=== PATIENT | female | born 1990 | race Caucasian/White ===

== ENCOUNTER → 2016-12-09 | Outpatient (CLI) | payer BC | LOC: MW.LAB 13:14 | PROVIDERS: ATTEND Internal Medicine Endocrinology, Diabetes & Metabolism | DX: E05.90 Thyrotoxicosis, unspecified without thyrotoxic crisis or storm (principal) | CPT/HCPCS: 36415; 84439; 84481 ==

== ENCOUNTER 2018-02-21 07:17 | Day surgery (SDC) | payer BC ==
[~2018-02-21 07:17] MED LIST: Acetaminophen 1,000 MG in Premix Bag 1 BAG IV SCH; Lactated Ringers 1,000 ML IV SCH; Scopolamine 1.5 MG Transdermal Patch TRDERM PRN; fentaNYL 100 MCG/2 ML SDV IVPUSH PRN
[2018-02-21] MEDS ORDERED: Ondansetron 4 MG/2 ML SDV ONE (07:18)
[2018-02-21] MEDS ORDERED: Dexamethasone 4 MG/ML 5 ML MDV ONE (07:18)
[2018-02-21] MEDS ORDERED: diphenhydrAMINE 50 MG/ML SDV ONE (07:18)
[2018-02-21] MEDS ORDERED: Propofol 200 MG/20 ML SDV ONE (07:19)
[2018-02-21] MEDS ORDERED: Midazolam 1 MG/ML 2 ML SDV ONE (07:19)
[2018-02-21] MEDS ORDERED: fentaNYL 100 MCG/2 ML SDV ONE (07:19)
[2018-02-21] MEDS ORDERED: Famotidine 20 MG/2 ML SDV ONE (08:42)
--- NOTE | 2018-02-21 08:44 | PCM.PREANE ---
Preanesthetic Assessment - Anesthesia/Transfusion/Family Hx Anesthesia History: Prior Anesthesia Without Reaction Other Type of Anesthesia Reaction Comment: states mother has problems with N/V Family History of Anesthesia Reaction: No Transfusion History: No Prior Transfusion(s) Intubation History: Unknown - Review of Systems General: No Symptoms Pulmonary: No Symptoms Cardiovascular: No Symptoms Gastrointestinal: No Symptoms Neurological: No Symptoms Other: Reports: None - Physical Assessment Height: 1.68 m Weight: 55.338 kg ASA Class: 2 Mental Status: Alert & Oriented x3 Airway Class: Mallampati = 2 Dentition: Reports: Normal Dentition Thyro-Mental Finger Breadths: 3 Mouth Opening Finger Breadths: 3 ROM/Head Extension: Full Lungs: Clear to Auscultation, Normal Respiratory Effort Cardiovascular: Regular Rate, Regular Rhythm - Lab Values: Laboratory Last Values WBC 8.99 K/uL (4.0-11.0) 02/20/18 16:03 RBC 4.32 M/uL (4.30-5.90) 02/20/18 16:03 Hgb 14.1 g/dL (12.0-16.0) 02/20/18 16:03 Hct 38.1 % (36.0-46.0) 02/20/18 16:03 MCV 88.2 fL (80.0-98.0) 02/20/18 16:03 MCH 32.6 pg (27.0-32.0) H 02/20/18 16:03 MCHC 37.0 g/dL (31.0-37.0) 02/20/18 16:03 RDW Std Deviation 39.4 fl (28.0-62.0) 02/20/18 16:03 RDW Coeff of Sola 12 % (11.0-15.0) 02/20/18 16:03 Plt Count 206 K/uL (150-400) 02/20/18 16:03 MPV 10.40 fL (7.40-12.00) 02/20/18 16:03 Nucleated RBC % 0.0 /100WBC 02/20/18 16:03 Nucleated RBCs # 0 K/uL 02/20/18 16:03 Blood Type A POSITIVE 02/20/18 16:03 Antibody Screen NEGATIVE 02/20/18 16:03 - Allergies Allergies/Adverse Reactions: Allergies Allergy/AdvReac Type Severity Reaction Status Date / Time No Known Allergies Allergy Verified 02/16/18 15:00 - Blood Blood Available: No - Anesthesia Plan Pre-Op Medication Ordered: None - Acknowledgements Anesthesia Type Planned: General Anesthesia Pt an Appropriate Candidate for the Planned Anesthesia: Yes Alternatives and Risks of Anesthesia Discussed w Pt/Guardian: Yes Pt/Guardian Understands and Agrees with Anesthesia Plan: Yes PreAnesthesia Questionnaire HEENT History: Reports: Other (See Below) Other HEENT History: wears glasses/contacts Cardiovascular History: Reports: None Respiratory History: Reports: None Gastrointestinal History: Reports: GERD Genitourinary History: Reports: None 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) (missed ) Musculoskeletal History: Reports: None Neurological History: Reports: None Psychiatric History: Reports: None Endocrine/Metabolic History: Reports: Hyperparathyroidism, Other (See Below) Other Endocrine/Metabolic History: Graves Disease Hematologic History: Reports: None Immunologic History: Reports: None Oncologic (Cancer) History: Reports: None Dermatologic History: Reports: None - Past Surgical History Head Surgeries/Procedures: Reports: None HEENT Surgical History: Reports: Oral Surgery Cardiovascular Surgical History: Reports: None Respiratory Surgical History: Reports: None GI Surgical History: Reports: Cholecystectomy, EGD Female Surgical History: Reports: Other (See Below) Other Female Surgeries/Procedures: excision axillary left breast tissue Endocrine Surgical History: Reports: None Neurological Surgical History: Reports: None Musculoskeletal Surgical History: Reports: None Oncologic Surgical History: Reports: None Dermatological Surgical History: Reports: None - SUBSTANCE USE Smoking Status *Q: Never Smoker Recreational Drug Use History: No - HOME MEDS Home Medications: Home Meds Propylthiouracil 50 mg PO Q8H 02/16/18 [History] - CURRENT (IN HOUSE) MEDS Current Meds: Current Medications Fentanyl (Sublimaze) 50 mcg IVPUSH .Q5MIN PRN PRN Reason: Pain Lactated Ringer's (Ringers, Lactated) 1,000 mls @ 100 mls/hr IV ASDIRECTED KARTHIK Acetaminophen 1,000 mg/ Premix 100 mls @ 400 mls/hr IV .ONETIME KARTHIK Scopolamine (Transderm-Scop) 1.5 mg TRDERM .ONCE PRN PRN Reason: Post Op Nausea Discontinued Medications Dexamethasone (Dexamethasone) Confirm Administered Dose 20 mg .ROUTE .STK-MED ONE Stop: 02/21/18 07:19 Diphenhydramine HCl (Benadryl) Confirm Administered Dose 50 mg .ROUTE .STK-MED ONE Stop: 02/21/18 07:19 Fentanyl (Sublimaze) Confirm Administered Dose 100 mcg .ROUTE .STK-MED ONE Stop: 02/21/18 07:20 Lidocaine HCl (Xylocaine-Mpf 1%) Confirm Administered Dose 5 mls @ as directed .ROUTE .STK-MED ONE Stop: 02/21/18 07:19 Midazolam HCl (Versed 1 Mg/Ml) Confirm Administered Dose 2 mg .ROUTE .STK-MED ONE Stop: 02/21/18 07:20 Ondansetron HCl (Zofran) Confirm Administered Dose 4 mg .ROUTE .STK-MED ONE Stop: 02/21/18 07:19 Propofol (Diprivan 20 Ml) Confirm Administered Dose 200 mg .ROUTE .STK-MED ONE Stop: 02/21/18 07:20
[2018-02-21] MEDS ORDERED: Methylergonovine 0.2 MG/1 ML Amp ONE (09:09)
[2018-02-21] MEDS ORDERED: Ketorolac 30 MG/ML SDV ONE (09:27)
[2018-02-21] MEDS ORDERED: Meperidine PF 25 MG/ML Syringe IVPUSH PRN (09:41)
[2018-02-21] MEDS ORDERED: Promethazine 25 MG/ML SDV IM PRN (09:42)
--- NOTE | 2018-02-21 10:21 | PCM.OPNOTE ---
- General Post-Op/Procedure Note Date of Surgery/Procedure: 02/21/18 Operative Procedure(s): suctions dilatation and curettage Findings: Preop uterus boggy, retroverted 9 week size, sounds to 9 cm. Postop, uterus firm, retroverted, no retained POC on ultrasound, 7 week size Pre Op Diagnosis: 8w5d blighted ovum Post-Op Diagnosis: Same Anesthesia Technique: General LMA Primary Surgeon: Tammy Sanchez Anesthesia Provider: Lalo Gamboa Rn Charge: Alla Hua Pathology: products of conception Fluid Replacement, Intraop: 1,500 EBL in mLs: 300 Complications: None Known Condition: Good Free Text/Narrative:: Intake & Output 02/20/18 02/21/18 02/21/18 22:59 06:59 14:59 Intake Total 1700 Balance 1700
--- NOTE | 2018-02-21 11:42 | PCM48HPAN ---
Post Anesthesia Note - EVALUATION WITHIN 48HRS OF ANESTHETIC Vital Signs in Normal Range: Yes Patient Participated in Evaluation: Yes Respiratory Function Stable: Yes Airway Patent: Yes Cardiovascular Function Stable: Yes Hydration Status Stable: Yes Pain Control Satisfactory: Yes Nausea and Vomiting Control Satisfactory: Yes Mental Status Recovered: Yes Resp Rate: 13 - COMMENTS/OBSERVATIONS Free Text/Narrative:: no anesthesia problems
[2018-02-21 14:20] VITALS: BP 104/76
--- NOTE | 2018-02-21 14:46 | OR ---
SURGEON: Tammy Sanchez M.D. DATE OF PROCEDURE: 02/21/2018 PREOPERATIVE DIAGNOSIS: Missed . POSTOPERATIVE DIAGNOSIS: Missed . PROCEDURE: Suction, dilatation, and curettage. ANESTHESIA: General LMA. ESTIMATED BLOOD LOSS: 300 mL. FLUIDS: 1500 mL of crystalloid. FINDINGS: Preoperatively, the uterus was retroverted, sounded to 9-week size, 9 cm on bimanual examination. Postoperatively, the uterus was firm, retroverted, 6-7 week size. COMPLICATIONS: None known. DISPOSITION: Stable to recovery. BRIEF HISTORY: This is a 27-year-old female, G1, P0. She is currently 8 weeks and 5 days with a blighted ovum. She has had no bleeding, spotting, pain, or cramping. She has continued to be nauseated throughout the ; however, on serial ultrasounds, there was a large gestational sac with no yolk sac. She was given option of vaginal Cytotec in the clinic versus suction D and C versus expectant management. She desired to proceed with suction D and C, she did receive a single dose of oral 200 mcg of Cytotec. Approximately 6 hours prior to the surgery, she did notice some cramping, very light spotting after taking Cytotec. Risks of the surgery were discussed including bleeding, infection, uterine perforation with injury to surrounding organs, risk of thromboembolic event, risk of anesthesia, and risk of Asherman syndrome. Understanding all these risks, she does desire to proceed. DESCRIPTION OF PROCEDURE: With the patient in dorsal lithotomy position, under adequate LMA analgesia, the perineum and vagina were prepped with Betadine and draped in usual fashion for vaginal surgery. An appropriate time-out was held. Bimanual examination revealed a retroverted 9-week size uterus. Speculum was placed in the vagina. The tenaculum was placed on the anterior cervix and the cervix was sounded to 9 cm, it was dilated to a 9 mm Hegar dilator and with traction on the cervix, the straight 9 mm suction curette was placed to the uterine fundus and retracted repetitively. Initially, there was some fluid and tissue obtained. Following this, there was no further tissue obtained. Sharp curettage was performed on the 12, 3, 6, and 9 o'clock position. I did not feel an active uterine cry, although I did not obtain any additional tissue. I did take several more passes with a 9 mm curette with no further tissue obtained. I did further dilated to a 10 mm curette and made a pass with a 10 mm curette. Again, I did not obtain any further tissue; therefore, ultrasound was obtained. There was excellent visualization of the endometrial cavity. There was no evidence of any retained products of conception. This being completed, then the instruments were removed from the vagina. The patient did receive Methergine 0.2 mg IM. Following this, with bimanual massage, the uterus was firm, retroverted, 6-7 week size with minimal active bleeding. All the instruments removed from the vagina. Final sponge, needle, and instrument counts were reported as correct. There were no known complications. The patient was transferred to recovery in good condition. MAXIMILIAN WOODALL /[id number]
== END 2018-02-21 12:00 | disposition home or self-care (01) ==
LOC: MW.SDS 07:17
PROVIDERS: ATTEND Obstetrics & Gynecology
DX: O02.0 Blighted ovum and nonhydatidiform mole (principal); K21.9 Gastro-esophageal reflux disease without esophagitis; E05.00 Thyrotoxicosis with diffuse goiter without thyrotoxic crisis or storm; Z79.899 Other long term (current) drug therapy
CPT/HCPCS: 36415; 59820; 85027; 86850; 86900; 86901; A9270; J1100; J1200; J1885; J2175; J2210; J2250; J2405; J2550; J3010; J7120; 88305; J2704

== ENCOUNTER 2018-04-02 11:11 | Emergency (ER) | payer BC ==
[2018-04-02 11:22] VITALS: BP 115/68
[2018-04-02] MEDS ORDERED: Phenazopyridine 200 MG Tab PO ONE (11:38)
--- NOTE | 2018-04-02 11:40 | EDM.PDOC ---
ED HPI GENERAL MEDICAL PROBLEM - General Chief Complaint: Genitourinary Problem Stated Complaint: UTI Time Seen by Provider: 04/02/18 11:12 Source of Information: Reports: Patient History Limitations: Reports: No Limitations - History of Present Illness INITIAL COMMENTS - FREE TEXT/NARRATIVE: History of present illness: []Patient was diagnosed with UTI yesterday and this morning urinated blood. She denies any fevers or chills, she had mild low back pain yesterday but is better today. Patient has bilateral lower abdominal pain Review of systems: As per history of present illness and below otherwise all systems reviewed and negative. Past medical history: As per history of present illness and as reviewed below otherwise noncontributory. Surgical history: As per history of present illness and as reviewed below otherwise noncontributory. Social history: No reported history of drug or alcohol abuse. Family history: As per history of present illness and as reviewed below otherwise noncontributory. Physical exam: General: Well developed, well nourished in NAD HEENT: Atraumatic, normocephalic, pupils reactive, negative for conjunctival pallor or scleral icterus, mucous membranes moist, throat clear, neck supple, nontender, trachea midline. Lungs: Clear to auscultation, breath sounds equal bilaterally, chest nontender. Heart: S1S2, regular, negative for clicks, rubs, or JVD. Abdomen: Soft, nondistended, mild lower abdominal tenderness bilaterally without rebound or guarding. Negative for masses or hepatosplenomegaly. Negative for costovertebral tenderness. Pelvis: Stable nontender. Genitourinary: Deferred. Rectal: Deferred. Extremities: Atraumatic, negative for cords or calf pain. Neurovascular unremarkable. Neuro: Awake, alert, oriented. Cranial nerves II through XII unremarkable. Cerebellum unremarkable. Motor and sensory unremarkable throughout. Exam nonfocal. Skin:warm and dry Diagnostics: UA was 20-30 white cells too numerous to count red cells, urine culture sent, hCG negative Therapeutics: I reviewed the Zofran given ED Course: Unremarkable Impression: UTI Prescriptions: Pyridium, Plan: Increase fluids, Pyridium 3 times a day continue amoxicillin Definitive disposition and diagnosis as appropriate pending reevaluation and review of above. Bladder Pain Score (Numeric/FACES): 4 - Related Data Allergies Allergy/AdvReac Type Severity Reaction Status Date / Time No Known Allergies Allergy Verified 02/16/18 15:00 Home Meds: Home Meds Amoxicillin 500 mg TID 04/02/18 [History] Ketorolac [Toradol] 10 mg PO Q6H PRN 04/02/18 [History] Phenazopyridine HCl [Pyridium] 200 mg PO TID #9 tablet 04/02/18 [Rx] methIMAzole [Methimazole] 10 mg DAILY 04/02/18 [History] Past Medical History HEENT History: Reports: Other (See Below) Other HEENT History: wears glasses/contacts Cardiovascular History: Reports: None Respiratory History: Reports: None Gastrointestinal History: Reports: GERD Genitourinary History: Reports: None 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 (See Below) Musculoskeletal History: Reports: None Neurological History: Reports: None Psychiatric History: Reports: None Endocrine/Metabolic History: Reports: Hyperparathyroidism, Other (See Below) Other Endocrine/Metabolic History: Graves Disease Hematologic History: Reports: None Immunologic History: Reports: None Oncologic (Cancer) History: Reports: None Dermatologic History: Reports: None - Past Surgical History Head Surgeries/Procedures: Reports: None HEENT Surgical History: Reports: Oral Surgery Cardiovascular Surgical History: Reports: None Respiratory Surgical History: Reports: None GI Surgical History: Reports: Cholecystectomy, EGD Female Surgical History: Reports: D&C, Dilitation & Evacuation, Other (See Below) Other Female Surgeries/Procedures: excision axillary left breast tissue Endocrine Surgical History: Reports: None Neurological Surgical History: Reports: None Musculoskeletal Surgical History: Reports: None Oncologic Surgical History: Reports: None Dermatological Surgical History: Reports: None Social & Family History - Family History Family Medical History: Noncontributory - Tobacco Use Smoking Status *Q: Never Smoker Second Hand Smoke Exposure: No - Caffeine Use Caffeine Use: Reports: None - Recreational Drug Use Recreational Drug Use: No ED ROS GENERAL - Review of Systems Review Of Systems: ROS reveals no pertinent complaints other than HPI. ED EXAM, RENAL/ - Physical Exam Exam: See Below (See history of present illness) Course - Vital Signs Last Recorded V/S: Last Vital Signs Temp 98.1 F 04/02/18 11:19 Pulse 94 04/02/18 11:19 Resp 18 04/02/18 11:19 BP 115/68 04/02/18 11:19 Pulse Ox 94 L 04/02/18 11:19 - Orders/Labs/Meds Orders: Active Orders 24 hr Category Date Time Status CULTURE URINE [RM] Stat Lab 04/02/18 11:31 Received HCG QUALITATIVE,URINE [URCHEM] Stat Lab 04/02/18 11:31 Ordered URINALYSIS W/MICROSCOPIC [UA W/MICROSCOPIC] [URIN] Stat Lab 04/02/18 11:31 Ordered Labs: Laboratory Tests 04/02/18 04/02/18 Range/Units 11:31 11:31 Urine Color DARK YELLOW Urine Appearance SLT CLOUDY Urine pH 6.0 (5.0-8.0) Ur Specific Range 1.010 (1.001-1.035) Urine Protein 100 (NEGATIVE) mg/dL Urine Glucose (UA) NEGATIVE (NEGATIVE) mg/dL Urine Ketones NEGATIVE (NEGATIVE) mg/dL Urine Occult Blood LARGE H (NEGATIVE) Urine Nitrite NEGATIVE (NEGATIVE) Urine Bilirubin NEGATIVE (NEGATIVE) Urine Urobilinogen 0.2 (<2.0) EU/dL Ur Leukocyte Esterase MODERATE (NEGATIVE) Urine RBC TOO BHAVYA (0-2/HPF) Urine WBC 20-30 (0-5/HPF) Ur Epithelial Cells FEW (NONE-FEW) Urine Bacteria FEW (NEGATIVE) Urine HCG, Qual NEGATIVE (NEGATIVE) Meds: Medications Discontinued Medications Generic Name Dose Route Start Last Admin Trade Name Gerry PRN Reason Stop Dose Admin Ondansetron HCl 4 mg 04/02/18 11:51 04/02/18 11:52 Zofran Odt PO 04/02/18 11:52 4 mg ONETIME ONE Administration Ondansetron HCl Confirm 04/02/18 11:51 Zofran Odt Administered 04/02/18 11:52 Dose 4 mg .ROUTE .STK-MED ONE Phenazopyridine HCl 200 mg 04/02/18 11:38 04/02/18 11:52 Pyridium PO 04/02/18 11:39 200 mg ONETIME ONE Administration Departure - Departure Time of Disposition: 12:03 Disposition: Home, Self-Care 01 Condition: Good Clinical Impression: UTI (urinary tract infection) Qualifiers: Urinary tract infection type: site unspecified Hematuria presence: with hematuria Qualified Code(s): N39.0 - Urinary tract infection, site not specified ; R31.9 - Hematuria, unspecified - Discharge Information *PRESCRIPTION DRUG MONITORING PROGRAM REVIEWED*: No Prescriptions: Phenazopyridine HCl [Pyridium] 200 mg PO TID #9 tablet Referrals: Tammy Sanchez MD [Primary Care Provider] - Forms: ED Department Discharge Additional Instructions: The following information is given to patients seen in the emergency department who are being discharged to home. This information is to outline your options for follow-up care. We provide all patients seen in our emergency department with a follow-up referral. The need for follow-up, as well as the timing and circumstances, are variable depending upon the specifics of your emergency department visit. If you don't have a primary care physician on staff, we will provide you with a referral. We always advise you to contact your personal physician following an emergency department visit to inform them of the circumstance of the visit and for follow-up with them and/or the need for any referrals to a consulting specialist. The emergency department will also refer you to a specialist when appropriate. This referral assures that you have the opportunity for follow-up care with a specialist. All of these measure are taken in an effort to provide you with optimal care, which includes your follow-up. Under all circumstances we always encourage you to contact your private physician who remains a resource for coordinating your care. When calling for follow-up care, please make the office aware that this follow-up is from your recent emergency room visit. If for any reason you are refused follow-up, please contact the [facility] Emergency Department at and asked to speak to the emergency department charge nurse. Take Pyridium 3 times a day, continue amoxicillin increase fluids, follow-up with primary care, return if symptoms worsen or change [facility] [address] [place] [id number] - My Orders Last 24 Hours: My Active Orders 04/02/18 11:31 CULTURE URINE [RM] Stat HCG QUALITATIVE,URINE [URCHEM] Stat URINALYSIS W/MICROSCOPIC [UA W/MICROSCOPIC] [URIN] Stat - Assessment/Plan Last 24 Hours: My Active Orders 04/02/18 11:31 CULTURE URINE [RM] Stat HCG QUALITATIVE,URINE [URCHEM] Stat URINALYSIS W/MICROSCOPIC [UA W/MICROSCOPIC] [URIN] Stat
[2018-04-02] MEDS ORDERED: Ondansetron 4 MG Tab.DIS PO ONE (11:51)
[2018-04-02] MEDS ORDERED: Ondansetron 4 MG Tab.DIS ONE (11:51)
== END 2018-04-02 12:14 | disposition home or self-care (01) ==
LOC: MW.ED 11:11
DX: N39.0 Urinary tract infection, site not specified (principal)
CPT/HCPCS: 81001; 81025; 87086; 99283; A9270

== ENCOUNTER 2018-05-25 08:06 | Day surgery (SDC) | payer BC ==
[~2018-05-25 08:06] MED LIST changes: -Acetaminophen 1,000 MG in Premix Bag 1 BAG IV SCH; +Acetaminophen/HYDROcodone 325-5 MG Tab PO PRN; +Bupivacaine 0.25% 10 ML SDV ONE; +Lidocaine 1% 0 ML ONE; -Scopolamine 1.5 MG Transdermal Patch TRDERM PRN; +ceFAZolin 1 GM in Premix Bag 1 BAG IV SCH; -fentaNYL 100 MCG/2 ML SDV IVPUSH PRN
[2018-05-25] MEDS ORDERED: Propofol 200 MG/20 ML SDV ONE ×2 (08:40→08:53)
[2018-05-25] MEDS ORDERED: Lidocaine 2% 5 ML SDV ONE (08:40)
[2018-05-25] MEDS ORDERED: fentaNYL 100 MCG/2 ML SDV ONE (08:41)
[2018-05-25] MEDS ORDERED: Ondansetron 4 MG/2 ML SDV ONE (08:41)
[2018-05-25] MEDS ORDERED: Midazolam 1 MG/ML 2 ML SDV ONE (08:43)
[2018-05-25] MEDS ORDERED: Scopolamine 1.5 MG Transdermal Patch TRDERM PRN (08:51)
[2018-05-25] MEDS ORDERED: Scopolamine 1.5 MG Transdermal Patch ONE (08:52)
[2018-05-25] MEDS ORDERED: Dexamethasone 4 MG/ML 5 ML MDV ONE (08:52)
--- NOTE | 2018-05-25 08:53 | PCM.PREANE ---
Preanesthetic Assessment - Anesthesia/Transfusion/Family Hx Anesthesia History: Prior Anesthesia Reaction Type of Anesthesia Reaction: Excessive Nausea/Vomiting Other Type of Anesthesia Reaction Comment: states mother has problems with N/V Family History of Anesthesia Reaction: No Transfusion History: No Prior Transfusion(s) Intubation History: Unknown - Review of Systems General: No Symptoms Pulmonary: No Symptoms Cardiovascular: No Symptoms Gastrointestinal: No Symptoms Neurological: No Symptoms Other: Reports: None - Physical Assessment NPO Status Date: 05/24/18 Height: 1.68 m Weight: 56.699 kg ASA Class: 2 Mental Status: Alert & Oriented x3 Airway Class: Mallampati = 1 Dentition: Reports: Normal Dentition ROM/Head Extension: Full Lungs: Clear to Auscultation, Normal Respiratory Effort Cardiovascular: Regular Rate, Regular Rhythm - Lab Values: Laboratory Last Values Urine HCG, Qual NEGATIVE (NEGATIVE) 05/25/18 08:20 - Allergies Allergies/Adverse Reactions: Allergies Allergy/AdvReac Type Severity Reaction Status Date / Time No Known Allergies Allergy Verified 05/23/18 15:01 - Anesthesia Plan Pre-Op Medication Ordered: None - Acknowledgements Anesthesia Type Planned: General Anesthesia Pt an Appropriate Candidate for the Planned Anesthesia: Yes Alternatives and Risks of Anesthesia Discussed w Pt/Guardian: Yes Pt/Guardian Understands and Agrees with Anesthesia Plan: Yes Additional Comments: PMH: graves disease)hyperthyroidism) treated with tapazole x 2.5 years. 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 (See Below) Musculoskeletal History: Reports: None Neurological History: Reports: Other (See Below) Other Neuro History: hx of motion sickness Psychiatric History: Reports: None Endocrine/Metabolic History: Reports: Hyperthyroidism Other Endocrine/Metabolic History: Graves disease Hematologic History: Reports: None Immunologic History: Reports: None Oncologic (Cancer) History: Reports: None Dermatologic History: Reports: None - Past Surgical History HEENT Surgical History: Reports: Oral Surgery Other HEENT Surgeries/Procedures: wisdom teeth GI Surgical History: Reports: Cholecystectomy, EGD Female Surgical History: Reports: D&C, Other (See Below) Other Female Surgeries/Procedures: excision of axillary breast tissue - SUBSTANCE USE Smoking Status *Q: Never Smoker Recreational Drug Use History: No - HOME MEDS Home Medications: Home Meds Ketorolac [Toradol] 10 mg PO Q6H PRN 04/02/18 [History] methIMAzole [Methimazole] 10 mg PO BEDTIME 04/02/18 [History] Cholecalciferol (Vitamin D3) [Vitamin D3] 2,000 unit PO DAILY 05/23/18 [History] PNV95/Ferrous Fumarate/FA [ Tablet] 1 tab PO DAILY 05/23/18 [History] - CURRENT (IN HOUSE) MEDS Current Meds: Current Medications Hydrocodone Bitart/Acetaminophen (Ubly 325-5 Mg) 1 - 2 tab PO Q4H PRN PRN Reason: Pain Cefazolin Sodium/Dextrose 1 gm (/ Premix) 50 mls @ 100 mls/hr IV ONCALL KARTHIK Lactated Ringer's (Ringers, Lactated) 1,000 mls @ 100 mls/hr IV ASDIRECTED KARTHIK Discontinued Medications Bupivacaine HCl (Sensorcaine-Mpf 0.25%) Confirm Administered Dose 10 ml .ROUTE .STK-MED ONE Stop: 05/25/18 07:47 Fentanyl (Sublimaze) Confirm Administered Dose 100 mcg .ROUTE .STK-MED ONE Stop: 05/25/18 08:42 Lidocaine HCl (Xylocaine-Mpf 1%) Confirm Administered Dose 10 mls @ as directed .ROUTE .STK-MED ONE Stop: 05/25/18 07:47 Lidocaine (Xylocaine-Mpf 2%) Confirm Administered Dose 5 ml .ROUTE .STK-MED ONE Stop: 05/25/18 08:41 Midazolam HCl (Versed 1 Mg/Ml) Confirm Administered Dose 2 mg .ROUTE .STK-MED ONE Stop: 05/25/18 08:44 Ondansetron HCl (Zofran) Confirm Administered Dose 4 mg .ROUTE .STK-MED ONE Stop: 05/25/18 08:42 Propofol (Diprivan 20 Ml) Confirm Administered Dose 200 mg .ROUTE .STK-MED ONE Stop: 05/25/18 08:41
[2018-05-25] MEDS ORDERED: diphenhydrAMINE 50 MG/ML SDV ONE ×2 (10:02→10:57)
[2018-05-25] MEDS ORDERED: Ketorolac 30 MG/ML SDV ONE (10:16)
--- NOTE | 2018-05-25 10:35 | PCM.OPNOTE ---
- General Post-Op/Procedure Note Date of Surgery/Procedure: 05/25/18 Operative Procedure(s): Excision of left foot bony exostosis and ganglion excision Post-Op Diagnosis: L foot bony exostosis, L foot ganglion Anesthesia Technique: General LMA Primary Surgeon: Maribel Soler Relief Man: Jenn Kelly in mLs: 5 Condition: Good Free Text/Narrative:: tt=10 min #[id number]
[2018-05-25] MEDS ORDERED: Promethazine 25 MG/ML SDV ONE (10:59)
--- NOTE | 2018-05-25 11:09 | PCM.POSTAN ---
POST ANESTHESIA ASSESSMENT - MENTAL STATUS Mental Status: Alert, Oriented - VITAL SIGNS Pulse Rate: 80 SaO2: 97 Resp Rate: 10 Blood Pressure: 113/69 - RESPIRATORY Respiratory Status: Respiratory Rate WNL, Airway Patent, O2 Saturation Stable - CARDIOVASCULAR CV Status: Pulse Rate WNL, Blood Pressure Stable - GASTROINTESTINAL GI Status: Nauseau Free Text/Narrative:: Hx of PONV. TIVA case, patient is mildly nauseated in PACU. Propofol, Zofran, Dexamethasone, and scop patch were all started on patient. Phenergan 12.5mg IM x1 dose was given in PACU. - PAIN Pain Score: 0 - POST OP HYDRATION Hydration Status: Adequate & Stable
[2018-05-25] MEDS ORDERED: Haloperidol Lactate 5 MG/ML SDV IM PRN (11:26)
--- NOTE | 2018-05-25 12:32 | OR ---
SURGEON: Maribel Soler MD DATE OF PROCEDURE: 05/25/2018 PREOPERATIVE DIAGNOSIS: Left foot dorsal ganglion. POSTOPERATIVE DIAGNOSES: 1. Left foot dorsal ganglion. 2. Left foot bony exostosis. PROCEDURES: Excision of left foot dorsal ganglion and excision of left foot bony exostosis. PROGRAM ARRANGER: Jenn Kelly PA-C. ANESTHESIA: General. ESTIMATED BLOOD LOSS: 5 mL. TOURNIQUET TIME: 10 minutes. COMPLICATIONS: None. DVT PROPHYLAXIS: Not indicated. IMPLANTS USED: None. BRIEF HISTORY: Liliana is a 27-year-old female, who has had complaint of progressive left foot pain. She is bothered by persistent mass over the dorsum of her foot. This does bother her with shoe wear. She has tried conservative treatment, which has not been helpful. Due to her lack of response to conservative treatment, I did recommend surgical intervention. The risks and goals of procedure were discussed with the patient and were documented preoperatively. She agreed to proceed. DESCRIPTION OF PROCEDURE: The patient was properly identified and brought to the operating room. She was transferred from the OR cart and placed on the operating table in supine position. General anesthesia was administered. After adequate anesthesia was obtained, a well-padded tourniquet was applied to the left lower extremity. The left lower extremity was then prepped in standard fashion using ChloraPrep solution. It was then sterilely draped. A time-out was performed to ensure correct site and procedure. Preoperative antibiotics were given. Surgical site had been marked preoperatively. An Esmarch was used to exsanguinate the left lower extremity. The tourniquet was inflated to 250 mmHg. An incision was made and centered over the site of the mass. Subcutaneous tissues were incised. Care was taken to look for any superficial nerves. This was identified and protected throughout the procedure. The capsule of the mass was excised. Some fluid was expressed from the mass. This was sent for pathological evaluation. There appeared to be some prominence of the bone and I elected to proceed with excision of the exostosis as well. A rongeur was used to remove the prominent portion of the bone. It was again palpated and no further mass was noted. The wound was then copiously irrigated with saline solution. The tourniquet was deflated. No significant bleeding was noted. Bone wax was placed over the site of the bony excision. The deep tissue overlying the bone was then closed with 3-0 Vicryl. The subcutaneous tissues were closed with 3-0 Vicryl. The skin was closed with running 4-0 Monocryl suture. Steri-Strips and Benzoin were applied. A mixture of 1% lidocaine with 0.25% Marcaine was injected along the incision site. Aquacel dressing was placed. She was awakened from her anesthetic and transferred back to the operating room cart. She was brought to recovery room in stable condition. All needle and sponge counts were correct. LEFTY WOODALL /[id number]
--- NOTE | 2018-05-25 13:07 | PCM48HPAN ---
Post Anesthesia Note - EVALUATION WITHIN 48HRS OF ANESTHETIC Vital Signs in Normal Range: Yes Patient Participated in Evaluation: Yes Respiratory Function Stable: Yes Airway Patent: Yes Cardiovascular Function Stable: Yes Hydration Status Stable: Yes Pain Control Satisfactory: Yes Nausea and Vomiting Control Satisfactory: Yes Mental Status Recovered: Yes Pulse Rate: 80 Resp Rate: 17 Blood Pressure: 113/69
[2018-05-25 13:53] VITALS: BP 124/65
== END 2018-05-25 13:17 | disposition home or self-care (01) ==
LOC: MW.SDS 08:06
PROVIDERS: ATTEND Orthopaedic Surgery
DX: M67.472 Ganglion, left ankle and foot (principal); M25.775 Osteophyte, left foot; K21.9 Gastro-esophageal reflux disease without esophagitis; E05.00 Thyrotoxicosis with diffuse goiter without thyrotoxic crisis or storm; Z79.899 Other long term (current) drug therapy
CPT/HCPCS: 28090; 28108; 81025; A9270; J0131; J0690; J1100; J1885; J2250; J2405; J2704; J3010; J3490; J7120; 88304; J1200

== ENCOUNTER 2019-03-08 16:59 | Emergency (ER) | payer BC ==
--- NOTE | 2019-03-08 17:16 | EDM.PDOC ---
<Janice Zelaya - Last Filed: 03/08/19 19:06> ED HPI GENERAL MEDICAL PROBLEM - General Chief Complaint: Abdominal Pain Stated Complaint: VOMITING Time Seen by Provider: 03/08/19 17:16 - Related Data Allergies Allergy/AdvReac Type Severity Reaction Status Date / Time No Known Allergies Allergy Verified 03/08/19 17:11 Home Meds: Home Meds Cholecalciferol (Vitamin D3) [Vitamin D3] 2,000 unit PO DAILY 05/23/18 [History] PNV95/Ferrous Fumarate/FA [ Tablet] 1 tab PO DAILY 05/23/18 [History] Promethazine [Phenergan] 25 mg PO Q6H PRN #30 tab 05/25/18 [Rx] Propylthiouracil 50 mg PO TID 03/08/19 [History] ED ROS GENERAL - Review of Systems Review Of Systems: ROS reveals no pertinent complaints other than HPI. ED EXAM, GI/ABD - Physical Exam Exam: See Below (see dictation) Course - Vital Signs Last Recorded V/S: Last Vital Signs Temp 97.4 F 03/08/19 19:26 Pulse 84 03/08/19 19:26 Resp 14 03/08/19 19:26 BP 109/63 03/08/19 19:26 Pulse Ox 100 03/08/19 19:26 - Orders/Labs/Meds Labs: Laboratory Tests 03/08/19 03/08/19 03/08/19 Range/Units 17:30 17:30 17:30 WBC 8.64 (4.0-11.0) K/uL RBC 4.52 (4.30-5.90) M/uL Hgb 14.5 (12.0-16.0) g/dL Hct 40.3 (36.0-46.0) % MCV 89.2 (80.0-98.0) fL MCH 32.1 H (27.0-32.0) pg MCHC 36.0 (31.0-37.0) g/dL RDW Std Deviation 39.7 (28.0-62.0) fl RDW Coeff of Sola 12 (11.0-15.0) % Plt Count 197 (150-400) K/uL MPV 11.00 (7.40-12.00) fL Neut % (Auto) 76.4 (48.0-80.0) % Lymph % (Auto) 16.4 (16.0-40.0) % Sierra % (Auto) 7.1 (0.0-15.0) % Eos % (Auto) 0.1 (0.0-7.0) % Baso % (Auto) 0.0 (0.0-1.5) % Neut # (Auto) 6.6 H (1.4-5.7) K/uL Lymph # (Auto) 1.4 (0.6-2.4) K/uL Sierra # (Auto) 0.6 (0.0-0.8) K/uL Eos # (Auto) 0.0 (0.0-0.7) K/uL Baso # (Auto) 0.0 (0.0-0.1) K/uL Nucleated RBC % 0.0 /100WBC Nucleated RBCs # 0 K/uL Sodium 140 (136-145) mmol/L Potassium 3.7 (3.5-5.1) mmol/L Chloride 103 (98-107) mmol/L Carbon Dioxide 23.4 (21.0-32.0) mmol/L BUN 11 (7.0-18.0) mg/dL Creatinine 0.7 (0.6-1.0) mg/dL Est Cr Clr Drug Dosing 106.90 mL/min Estimated GFR (MDRD) > 60.0 ml/min Glucose 83 (74-106) mg/dL Calcium 9.5 (8.5-10.1) mg/dL Total Bilirubin 0.8 (0.2-1.0) mg/dL AST 15 (15-37) IU/L ALT 18 (14-63) IU/L Alkaline Phosphatase 59 (46-116) U/L Total Protein 8.4 H (6.4-8.2) g/dL Albumin 4.8 (3.4-5.0) g/dL Globulin 3.6 (2.6-4.0) g/dL Albumin/Globulin Ratio 1.3 (0.9-1.6) HCG, Quant 968010.0 mIU/mL Urine Color Urine Appearance Urine pH (5.0-8.0) Ur Specific [place] (1.001-1.035) Urine Protein (NEGATIVE) mg/dL Urine Glucose (UA) (NEGATIVE) mg/dL Urine Ketones (NEGATIVE) mg/dL Urine Occult Blood (NEGATIVE) Urine Nitrite (NEGATIVE) Urine Bilirubin (NEGATIVE) Urine Ictotest Urine Urobilinogen (<2.0) EU/dL Ur Leukocyte Esterase (NEGATIVE) 03/08/19 Range/Units 18:51 WBC (4.0-11.0) K/uL RBC (4.30-5.90) M/uL Hgb (12.0-16.0) g/dL Hct (36.0-46.0) % MCV (80.0-98.0) fL MCH (27.0-32.0) pg MCHC (31.0-37.0) g/dL RDW Std Deviation (28.0-62.0) fl RDW Coeff of Sola (11.0-15.0) % Plt Count (150-400) K/uL MPV (7.40-12.00) fL Neut % (Auto) (48.0-80.0) % Lymph % (Auto) (16.0-40.0) % Sierra % (Auto) (0.0-15.0) % Eos % (Auto) (0.0-7.0) % Baso % (Auto) (0.0-1.5) % Neut # (Auto) (1.4-5.7) K/uL Lymph # (Auto) (0.6-2.4) K/uL Sierra # (Auto) (0.0-0.8) K/uL Eos # (Auto) (0.0-0.7) K/uL Baso # (Auto) (0.0-0.1) K/uL Nucleated RBC % /100WBC Nucleated RBCs # K/uL Sodium (136-145) mmol/L Potassium (3.5-5.1) mmol/L Chloride (98-107) mmol/L Carbon Dioxide (21.0-32.0) mmol/L BUN (7.0-18.0) mg/dL Creatinine (0.6-1.0) mg/dL Est Cr Clr Drug Dosing mL/min Estimated GFR (MDRD) ml/min Glucose (74-106) mg/dL Calcium (8.5-10.1) mg/dL Total Bilirubin (0.2-1.0) mg/dL AST (15-37) IU/L ALT (14-63) IU/L Alkaline Phosphatase (46-116) U/L Total Protein (6.4-8.2) g/dL Albumin (3.4-5.0) g/dL Globulin (2.6-4.0) g/dL Albumin/Globulin Ratio (0.9-1.6) HCG, Quant mIU/mL Urine Color YELLOW Urine Appearance SLT CLOUDY Urine pH 5.5 (5.0-8.0) Ur Specific [place] >= 1.030 (1.001-1.035) Urine Protein NEGATIVE (NEGATIVE) mg/dL Urine Glucose (UA) NEGATIVE (NEGATIVE) mg/dL Urine Ketones >=80 (NEGATIVE) mg/dL Urine Occult Blood NEGATIVE (NEGATIVE) Urine Nitrite NEGATIVE (NEGATIVE) Urine Bilirubin SMALL H (NEGATIVE) Urine Ictotest NEGATIVE Urine Urobilinogen 0.2 (<2.0) EU/dL Ur Leukocyte Esterase NEGATIVE (NEGATIVE) Meds: Medications Discontinued Medications Generic Name Dose Route Start Last Admin Trade Name Porfirioq PRN Reason Stop Dose Admin Sodium Chloride 1,000 mls @ 999 mls/hr 03/08/19 17:17 03/08/19 17:35 Normal Saline IV 03/08/19 18:17 999 mls/hr STAT ONE Administration Ondansetron HCl 4 mg 03/08/19 17:17 03/08/19 17:33 Zofran IVPUSH 03/08/19 17:18 4 mg ONETIME ONE Administration Departure - Departure Time of Disposition: 19:05 Disposition: Home, Self-Care 01 Condition: Good Clinical Impression: Vomiting affecting - Discharge Information Instructions: Morning Sickness, [id number] Referrals: PCP,None [Primary Care Provider] - Forms: ED Department Discharge Additional Instructions: The following information is given to patients seen in the emergency department who are being discharged to home. This information is to outline your options for follow-up care. We provide all patients seen in our emergency department with a follow-up referral. The need for follow-up, as well as the timing and circumstances, are variable depending upon the specifics of your emergency department visit. If you don't have a primary care physician on staff, we will provide you with a referral. We always advise you to contact your personal physician following an emergency department visit to inform them of the circumstance of the visit and for follow-up with them and/or the need for any referrals to a consulting specialist. The emergency department will also refer you to a specialist when appropriate. This referral assures that you have the opportunity for follow-up care with a specialist. All of these measure are taken in an effort to provide you with optimal care, which includes your follow-up. Under all circumstances we always encourage you to contact your private physician who remains a resource for coordinating your care. When calling for follow-up care, please make the office aware that this follow-up is from your recent emergency room visit. If for any reason you are refused follow-up, please contact the [facility] Emergency Department at and asked to speak to the emergency department charge nurse. [facility] [address] [place] [id number] [place] [address] 1. Drink plenty of small sips of fluids throughout the day and bland food as tolerated. take meclizine as prescribed for nausea and vomiting. 2. Follow-up with [facility] 3. Return to ED as needed as discussed <Lakisha Ramirez E - Last Filed: 03/09/19 21:59> ED HPI GENERAL MEDICAL PROBLEM - General Source of Information: Reports: Patient History Limitations: Reports: No Limitations - History of Present Illness INITIAL COMMENTS - FREE TEXT/NARRATIVE: HISTORY AND PHYSICAL: History of present illness: Patient is a 28-year-old female who presents to the emergency room with complaints of dizziness and nausea in . She states that she has been having severe nausea and vomiting over the past several days and has been in contact with her [facility] Dr. Sanchez. Has been using Phenergan suppositories and Zofran ODT area and called her office today and received meclizine which she has yet picked up or tried. She denies any abdominal pain, vaginal bleeding/ cramping or dysuria. Has not yet had a confirmed IUP with ultrasound. Patient denies any fever, chills, neck pain/stiffness, headache, change in vision, syncope or near syncope. Denies any chest pain, back pain, shortness of breath or cough. Denies any abdominal pain, diarrhea, constipation or dysuria. Has not noted any blood in urine or stool. Patient has been eating and drinking appropriately. , P:0. Primary OGBYN is Dr Sanchez Review of systems: As per history of present illness and below otherwise all systems reviewed and negative. Past medical history: As per history of present illness and as reviewed below otherwise noncontributory. Surgical history: As per history of present illness and as reviewed below otherwise noncontributory. Social history: See social history for further information Family history: As per history of present illness and as reviewed below otherwise noncontributory. Physical exam: General: Well-developed and well-nourished 28-year-old female. Alert and oriented. Nontoxic appearing and in no acute distress. HEENT: Atraumatic, normocephalic, pupils equal and reactive bilaterally, negative for conjunctival pallor or scleral icterus, mucous membranes moist, TMs normal bilaterally, throat clear, neck supple, nontender, trachea midline. No drooling or trismus noted. No meningeal signs. No hot potato voice noted. Lungs: Clear to auscultation, breath sounds equal bilaterally, chest nontender. Heart: S1S2, regular rate and rhythm without overt murmur Abdomen: Soft, nondistended, nontender. Negative for masses or hepatosplenomegaly. Negative for costovertebral tenderness. Pelvis: Stable nontender. Skin: Intact, warm, dry. No lesions or rashes noted. Extremities: Atraumatic, moves all extremities per self without difficulty or deficits, negative for cords or calf pain. Neurovascular unremarkable. Neuro: Awake, alert, oriented. Cranial nerves II through XII unremarkable. Cerebellum unremarkable. Motor and sensory unremarkable throughout. Exam nonfocal. Notes: Janice Zelaya assumed care of this patient; awaiting labs and imaging results. Will disposition patient appropriately. Diagnostics: CBC, CMP, Quant HCG, UA, OB US Therapeutics: IV fluids, Zofran Impression: Nausea and vomiting in Definitive disposition and diagnosis as appropriate pending reevaluation and review of above. Past Medical History HEENT History: Reports: Other (See Below) Other HEENT History: wears glasses Cardiovascular History: Reports: None Respiratory History: Reports: None Gastrointestinal History: Reports: GERD Genitourinary History: Reports: None ORE W[facility]ER History: Reports: Other (See Below) Musculoskeletal History: Reports: None Neurological History: Reports: Other (See Below) Other Neuro History: hx of motion sickness Psychiatric History: Reports: None Endocrine/Metabolic History: Reports: Hyperthyroidism Other Endocrine/Metabolic History: Graves disease Hematologic History: Reports: None Immunologic History: Reports: None Oncologic (Cancer) History: Reports: None Dermatologic History: Reports: None - Past Surgical History Head Surgeries/Procedures: Reports: None HEENT Surgical History: Reports: Oral Surgery Other HEENT Surgeries/Procedures: wisdom teeth Cardiovascular Surgical History: Reports: None Respiratory Surgical History: Reports: None GI Surgical History: Reports: Cholecystectomy, EGD Female Surgical History: Reports: D&C, Other (See Below) Other Female Surgeries/Procedures: excision of axillary breast tissue Endocrine Surgical History: Reports: None Neurological Surgical History: Reports: None Musculoskeletal Surgical History: Reports: None Oncologic Surgical History: Reports: None Dermatological Surgical History: Reports: None Social & Family History - Family History Family Medical History: Noncontributory - Caffeine Use Caffeine Use: Reports: None Course - Orders/Labs/Meds Labs: Laboratory Tests 03/08/19 03/08/19 03/08/19 Range/Units 17:30 17:30 17:30 WBC 8.64 (4.0-11.0) K/uL RBC 4.52 (4.30-5.90) M/uL Hgb 14.5 (12.0-16.0) g/dL Hct 40.3 (36.0-46.0) % MCV 89.2 (80.0-98.0) fL MCH 32.1 H (27.0-32.0) pg MCHC 36.0 (31.0-37.0) g/dL RDW Std Deviation 39.7 (28.0-62.0) fl RDW Coeff of Sola 12 (11.0-15.0) % Plt Count 197 (150-400) K/uL MPV 11.00 (7.40-12.00) fL Neut % (Auto) 76.4 (48.0-80.0) % Lymph % (Auto) 16.4 (16.0-40.0) % Sierra % (Auto) 7.1 (0.0-15.0) % Eos % (Auto) 0.1 (0.0-7.0) % Baso % (Auto) 0.0 (0.0-1.5) % Neut # (Auto) 6.6 H (1.4-5.7) K/uL Lymph # (Auto) 1.4 (0.6-2.4) K/uL Sierra # (Auto) 0.6 (0.0-0.8) K/uL Eos # (Auto) 0.0 (0.0-0.7) K/uL Baso # (Auto) 0.0 (0.0-0.1) K/uL Nucleated RBC % 0.0 /100WBC Nucleated RBCs # 0 K/uL Sodium 140 (136-145) mmol/L Potassium 3.7 (3.5-5.1) mmol/L Chloride 103 (98-107) mmol/L Carbon Dioxide 23.4 (21.0-32.0) mmol/L BUN 11 (7.0-18.0) mg/dL Creatinine 0.7 (0.6-1.0) mg/dL Est Cr Clr Drug Dosing 106.90 mL/min Estimated GFR (MDRD) > 60.0 ml/min Glucose 83 (74-106) mg/dL Calcium 9.5 (8.5-10.1) mg/dL Total Bilirubin 0.8 (0.2-1.0) mg/dL AST 15 (15-37) IU/L ALT 18 (14-63) IU/L Alkaline Phosphatase 59 (46-116) U/L Total Protein 8.4 H (6.4-8.2) g/dL Albumin 4.8 (3.4-5.0) g/dL Globulin 3.6 (2.6-4.0) g/dL Albumin/Globulin Ratio 1.3 (0.9-1.6) HCG, Quant 330350.0 mIU/mL Urine Color Urine Appearance Urine pH (5.0-8.0) Ur Specific [place] (1.001-1.035) Urine Protein (NEGATIVE) mg/dL Urine Glucose (UA) (NEGATIVE) mg/dL Urine Ketones (NEGATIVE) mg/dL Urine Occult Blood (NEGATIVE) Urine Nitrite (NEGATIVE) Urine Bilirubin (NEGATIVE) Urine Ictotest Urine Urobilinogen (<2.0) EU/dL Ur Leukocyte Esterase (NEGATIVE) 03/08/19 Range/Units 18:51 WBC (4.0-11.0) K/uL RBC (4.30-5.90) M/uL Hgb (12.0-16.0) g/dL Hct (36.0-46.0) % MCV (80.0-98.0) fL MCH (27.0-32.0) pg MCHC (31.0-37.0) g/dL RDW Std Deviation (28.0-62.0) fl RDW Coeff of Sola (11.0-15.0) % Plt Count (150-400) K/uL MPV (7.40-12.00) fL Neut % (Auto) (48.0-80.0) % Lymph % (Auto) (16.0-40.0) % Sierra % (Auto) (0.0-15.0) % Eos % (Auto) (0.0-7.0) % Baso % (Auto) (0.0-1.5) % Neut # (Auto) (1.4-5.7) K/uL Lymph # (Auto) (0.6-2.4) K/uL Sierra # (Auto) (0.0-0.8) K/uL Eos # (Auto) (0.0-0.7) K/uL Baso # (Auto) (0.0-0.1) K/uL Nucleated RBC % /100WBC Nucleated RBCs # K/uL Sodium (136-145) mmol/L Potassium (3.5-5.1) mmol/L Chloride (98-107) mmol/L Carbon Dioxide (21.0-32.0) mmol/L BUN (7.0-18.0) mg/dL Creatinine (0.6-1.0) mg/dL Est Cr Clr Drug Dosing mL/min Estimated GFR (MDRD) ml/min Glucose (74-106) mg/dL Calcium (8.5-10.1) mg/dL Total Bilirubin (0.2-1.0) mg/dL AST (15-37) IU/L ALT (14-63) IU/L Alkaline Phosphatase (46-116) U/L Total Protein (6.4-8.2) g/dL Albumin (3.4-5.0) g/dL Globulin (2.6-4.0) g/dL Albumin/Globulin Ratio (0.9-1.6) HCG, Quant mIU/mL Urine Color YELLOW Urine Appearance SLT CLOUDY Urine pH 5.5 (5.0-8.0) Ur Specific [place] >= 1.030 (1.001-1.035) Urine Protein NEGATIVE (NEGATIVE) mg/dL Urine Glucose (UA) NEGATIVE (NEGATIVE) mg/dL Urine Ketones >=80 (NEGATIVE) mg/dL Urine Occult Blood NEGATIVE (NEGATIVE) Urine Nitrite NEGATIVE (NEGATIVE) Urine Bilirubin SMALL H (NEGATIVE) Urine Ictotest NEGATIVE Urine Urobilinogen 0.2 (<2.0) EU/dL Ur Leukocyte Esterase NEGATIVE (NEGATIVE) Meds: Medications Discontinued Medications Generic Name Dose Route Start Last Admin Trade Name Freq PRN Reason Stop Dose Admin Sodium Chloride 1,000 mls @ 999 mls/hr 03/08/19 17:17 03/08/19 17:35 Normal Saline IV 03/08/19 18:17 999 mls/hr STAT ONE Administration Ondansetron HCl 4 mg 03/08/19 17:17 03/08/19 17:33 Zofran IVPUSH 03/08/19 17:18 4 mg ONETIME ONE Administration
[2019-03-08] MEDS ORDERED: Sodium Chloride 0.9% 1,000 ML IV ONE (17:17)
[2019-03-08] MEDS ORDERED: Ondansetron 4 MG/2 ML SDV IVPUSH ONE (17:17)
[2019-03-08 18:17] LABS: CHLORIDE,CL 103 mmol/L (98-107); SODIUM,NA 140 mmol/L (136-145)
--- NOTE | 2019-03-08 18:45 | US ---
HISTORY: Confirm intrauterine . COMPARISON: None available of this gestation. TECHNIQUE: Transvaginal ultrasound examination of the early was performed. FINDINGS: A single intrauterine gestational sac is seen with a pole. The crown-rump length measurement of 1.2 cm gives an estimated gestational age of 7 weeks 2 days with an estimated date of delivery of 10/23/2019. The LMP is unknown. Regular cardiac activity is seen at 144 BPM. A small subchorionic hemorrhage is seen adjacent to the inferior gestational sac measuring 0.7 x 0.5 by 0.3 centimeters. There is no sign of free fluid in the pelvis. The right ovary has a septated cyst within it measuring up to 1.7 centimeters in diameter. This may be a corpus luteum cyst of . The left ovary is normal in appearance. There is normal color and pulsed Doppler flow in both ovaries. IMPRESSION: Single intrauterine gestation with estimated age of 7 weeks 2 days. Regular cardiac activity is seen. Tiny subchorionic hemorrhage located inferior to the gestational sac. Dictated by Steven Robison MD @ Mar 08 2019 6:39PM Signed by Dr. Steven Robison @ Mar 08 2019 6:42PM
[2019-03-08 19:57] VITALS: BP 109/63
== END 2019-03-08 19:26 | disposition home or self-care (01) ==
LOC: MW.ED 16:59
DX: O21.9 Vomiting of pregnancy, unspecified (principal); Z3A.01 Less than 8 weeks gestation of pregnancy; Z79.899 Other long term (current) drug therapy
CPT/HCPCS: 36415; 76817; 80053; 81003; 84702; 85025; 96361; 96374; 99284; J2405; J7040

== ENCOUNTER 2019-04-23 21:30 | Emergency (ER) | payer BC ==
[2019-04-23] MEDS ORDERED: Sodium Chloride 0.9% 1,000 ML IV ONE (21:37)
[2019-04-23] MEDS ORDERED: Ondansetron 4 MG/2 ML SDV IVPUSH ONE ×3 (21:37→23:02)
[2019-04-23] MEDS ORDERED: Sodium Chloride 0.9% 10 ML Syringe FLUSH PRN (21:37)
[2019-04-23] MEDS ORDERED: Sodium Chloride 0.9% 2.5 ML Syringe FLUSH PRN (21:37)
--- NOTE | 2019-04-23 21:49 | EDM.PDOC ---
ED HPI GENERAL MEDICAL PROBLEM - General Chief Complaint: Gastrointestinal Problem Stated Complaint: NAUSEA/ Time Seen by Provider: 04/23/19 21:49 Source of Information: Reports: Patient History Limitations: Reports: No Limitations - History of Present Illness INITIAL COMMENTS - FREE TEXT/NARRATIVE: HISTORY AND PHYSICAL: History of present illness: Patient is a 28-year-old female presents to the ED with complaint of nausea and vomiting in . She is 14 weeks gestation. She states she has vomited about 8 times per day and has not been able to keep any fluids down. She talked with Dr. Sanchez who advised she be evaluated in ED. She states she had morning sickness early in her but has not had an issue with it in a few weeks. She is unable to her ODT zofran as the taste makes her sick and vomit. She did not try taking any of her rectal phenergan. She denies fevers, chills, abdominal pain, diarrhea, chest pain, SOB, vaginal bleeding or discharge. denies sick contacts. Review of systems: As per history of present illness and below otherwise all systems reviewed and negative. Past medical history: As per history of present illness and as reviewed below otherwise noncontributory. Surgical history: As per history of present illness and as reviewed below otherwise noncontributory. Social history: No reported history of drug or alcohol abuse. Family history: As per history of present illness and as reviewed below otherwise noncontributory. Physical exam: General: Patient sitting comfortably in no acute distress and nontoxic appearing HEENT: Atraumatic, normocephalic, pupils reactive, negative for conjunctival pallor or scleral icterus, mucous membranes moist, throat clear, neck supple, nontender, trachea midline. No meningeal signs. Lungs: Clear to auscultation, breath sounds equal bilaterally, chest nontender. Heart: S1S2, regular, negative for clicks, rubs, or overt murmur. Abdomen: Soft, nondistended, nontender. Negative for masses or hepatosplenomegaly. Negative for costovertebral tenderness. No rigidity, rebound , guarding. Pelvis: Stable nontender. Genitourinary: Deferred. Rectal: Deferred. Extremities: Atraumatic, negative for cords or calf pain. Neurovascular unremarkable. Neuro: Awake, alert, oriented. Cranial nerves II through XII unremarkable. Cerebellum unremarkable. Motor and sensory unremarkable throughout. Exam nonfocal. Notes: Discussed with Dr. Sanchez, advised patient take rectal phenergan and follow up in her clinic. Diagnostics: CBC, CMP, UA, FHT Therapeutics: 1L NS IV 4mg Zofran IV Prescriptions: Impression: Vomiting in Plan: Use phenergan as needed for vomiting. Drink plenty of small sips of fluids and bland food as tolerated Follow up with finished cloth checker Return to ED As needed as discussed Definitive disposition and diagnosis as appropriate pending reevaluation and review of above. - Related Data Allergies Allergy/AdvReac Type Severity Reaction Status Date / Time No Known Allergies Allergy Verified 04/23/19 21:48 Home Meds: Home Meds Cholecalciferol (Vitamin D3) [Vitamin D3] 2,000 unit PO DAILY 05/23/18 [History] PNV95/Ferrous Fumarate/FA [ Tablet] 1 tab PO DAILY 05/23/18 [History] Methimazole [Tapazole] 5 mg PO DAILY 04/23/19 [History] Past Medical History HEENT History: Reports: Other (See Below) Other HEENT History: wears glasses Cardiovascular History: Reports: None Respiratory History: Reports: None Gastrointestinal History: Reports: GERD Genitourinary History: Reports: None 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: Other (See Below) Musculoskeletal History: Reports: None Neurological History: Reports: Other (See Below) Other Neuro History: hx of motion sickness Psychiatric History: Reports: None Endocrine/Metabolic History: Reports: Hyperthyroidism Other Endocrine/Metabolic History: Graves disease Hematologic History: Reports: None Immunologic History: Reports: None Oncologic (Cancer) History: Reports: None Dermatologic History: Reports: None - Infectious Disease History Infectious Disease History: Reports: Chicken Pox - Past Surgical History Head Surgeries/Procedures: Reports: None HEENT Surgical History: Reports: Oral Surgery Other HEENT Surgeries/Procedures: wisdom teeth Cardiovascular Surgical History: Reports: None Respiratory Surgical History: Reports: None GI Surgical History: Reports: Cholecystectomy, EGD Female Surgical History: Reports: D&C, Other (See Below) Other Female Surgeries/Procedures: excision of axillary breast tissue Endocrine Surgical History: Reports: None Neurological Surgical History: Reports: None Musculoskeletal Surgical History: Reports: None Oncologic Surgical History: Reports: None Dermatological Surgical History: Reports: None Social & Family History - Family History Family Medical History: Noncontributory - Caffeine Use Caffeine Use: Reports: None ED ROS GENERAL - Review of Systems Review Of Systems: ROS reveals no pertinent complaints other than HPI. ED EXAM, GI/ABD - Physical Exam Exam: See Below (see dictation) Course - Vital Signs Last Recorded V/S: Last Vital Signs Temp 97.7 F 04/23/19 21:41 Pulse 97 04/23/19 21:41 Resp 14 04/23/19 21:41 BP 118/78 04/23/19 21:41 Pulse Ox 97 04/23/19 21:41 - Orders/Labs/Meds Orders: Active Orders 24 hr Category Date Time Status Heart Tones [RC] ASDIRECTED Care 04/23/19 21:50 Active Promethazine [Phenadoz] Med 04/23/19 22:43 Active 12.5 mg RECTAL Q6H PRN Sodium Chloride 0.9% [Saline Flush] Med 04/23/19 21:37 Active 10 ml FLUSH ASDIRECTED PRN Sodium Chloride 0.9% [Saline Flush] Med 04/23/19 21:37 Active 2.5 ml FLUSH ASDIRECTED PRN Saline Lock Insert [OM.PC] Stat Oth 04/23/19 21:37 Ordered Medication Orders Promethazine HCl (Phenadoz) 12.5 mg RECTAL Q6H PRN PRN Reason: Nausea/Vomiting Sodium Chloride (Saline Flush) 10 ml FLUSH ASDIRECTED PRN PRN Reason: Keep Vein Open Sodium Chloride (Saline Flush) 2.5 ml FLUSH ASDIRECTED PRN PRN Reason: Keep Vein Open Labs: Laboratory Tests 04/23/19 04/23/19 04/23/19 Range/Units 21:55 22:05 22:05 WBC 12.46 H (4.0-11.0) K/uL RBC 4.41 (4.30-5.90) M/uL Hgb 14.5 (12.0-16.0) g/dL Hct 40.1 (36.0-46.0) % MCV 90.9 (80.0-98.0) fL MCH 32.9 H (27.0-32.0) pg MCHC 36.2 (31.0-37.0) g/dL RDW Std Deviation 43.0 (28.0-62.0) fl RDW Coeff of Sola 13 (11.0-15.0) % Plt Count 239 (150-400) K/uL MPV 10.50 (7.40-12.00) fL Neut % (Auto) 84.8 H (48.0-80.0) % Lymph % (Auto) 9.1 L (16.0-40.0) % [place] % (Auto) 5.5 (0.0-15.0) % Eos % (Auto) 0.5 (0.0-7.0) % Baso % (Auto) 0.1 (0.0-1.5) % Neut # (Auto) 10.6 H (1.4-5.7) K/uL Lymph # (Auto) 1.1 (0.6-2.4) K/uL [place] # (Auto) 0.7 (0.0-0.8) K/uL Eos # (Auto) 0.1 (0.0-0.7) K/uL Baso # (Auto) 0.0 (0.0-0.1) K/uL Nucleated RBC % 0.0 /100WBC Nucleated RBCs # 0 K/uL Sodium 139 (136-145) mmol/L Potassium 3.5 (3.5-5.1) mmol/L Chloride 103 (98-107) mmol/L Carbon Dioxide 24.8 (21.0-32.0) mmol/L BUN 7 (7.0-18.0) mg/dL Creatinine 0.6 (0.6-1.0) mg/dL Est Cr Clr Drug Dosing 133.01 mL/min Estimated GFR (MDRD) > 60.0 ml/min Glucose 117 H (74-106) mg/dL Calcium 9.1 (8.5-10.1) mg/dL Total Bilirubin 0.4 (0.2-1.0) mg/dL AST 14 L (15-37) IU/L ALT 19 (14-63) IU/L Alkaline Phosphatase 48 (46-116) U/L Total Protein 7.3 (6.4-8.2) g/dL Albumin 3.6 (3.4-5.0) g/dL Globulin 3.7 (2.6-4.0) g/dL Albumin/Globulin Ratio 1.0 (0.9-1.6) Urine Color YELLOW Urine Appearance CLEAR Urine pH 6.5 (5.0-8.0) Ur Specific [place] 1.025 (1.001-1.035) Urine Protein TRACE H (NEGATIVE) mg/dL Urine Glucose (UA) NEGATIVE (NEGATIVE) mg/dL Urine Ketones 15 H (NEGATIVE) mg/dL Urine Occult Blood NEGATIVE (NEGATIVE) Urine Nitrite NEGATIVE (NEGATIVE) Urine Bilirubin NEGATIVE (NEGATIVE) Urine Urobilinogen 0.2 (<2.0) EU/dL Ur Leukocyte Esterase NEGATIVE (NEGATIVE) Urine RBC 0-1 (0-2/HPF) Urine WBC 1-3 (0-5/HPF) Ur Epithelial Cells FEW (NONE-FEW) Urine Bacteria FEW (NEGATIVE) Urine Mucus MODERATE (NONE-MOD) Meds: Medications Generic Name Dose Route Start Last Admin Trade Name Freq PRN Reason Stop Dose Admin Promethazine HCl 12.5 mg 04/23/19 22:43 Phenadoz RECTAL Q6H PRN Nausea/Vomiting Sodium Chloride 10 ml 04/23/19 21:37 Saline Flush FLUSH ASDIRECTED PRN Keep Vein Open Sodium Chloride 2.5 ml 04/23/19 21:37 Saline Flush FLUSH ASDIRECTED PRN Keep Vein Open Discontinued Medications Generic Name Dose Route Start Last Admin Trade Name Freq PRN Reason Stop Dose Admin Sodium Chloride 1,000 mls @ 999 mls/hr 04/23/19 21:37 04/23/19 22:01 Normal Saline IV 04/23/19 22:37 999 mls/hr STAT ONE Administration Ondansetron HCl 4 mg 04/23/19 21:37 04/23/19 22:02 Zofran IVPUSH 04/23/19 21:38 4 mg ONETIME ONE Administration Departure - Departure Time of Disposition: 22:53 Disposition: Home, Self-Care 01 Condition: Good Clinical Impression: Vomiting affecting - Discharge Information Referrals: PCP,None [Primary Care Provider] - Forms: ED Department Discharge Additional Instructions: The following information is given to patients seen in the emergency department who are being discharged to home. This information is to outline your options for follow-up care. We provide all patients seen in our emergency department with a follow-up referral. The need for follow-up, as well as the timing and circumstances, are variable depending upon the specifics of your emergency department visit. If you don't have a primary care physician on staff, we will provide you with a referral. We always advise you to contact your personal physician following an emergency department visit to inform them of the circumstance of the visit and for follow-up with them and/or the need for any referrals to a consulting specialist. The emergency department will also refer you to a specialist when appropriate. This referral assures that you have the opportunity for follow-up care with a specialist. All of these measure are taken in an effort to provide you with optimal care, which includes your follow-up. Under all circumstances we always encourage you to contact your private physician who remains a resource for coordinating your care. When calling for follow-up care, please make the office aware that this follow-up is from your recent emergency room visit. If for any reason you are refused follow-up, please contact the [facility] Emergency Department at and asked to speak to the emergency department charge nurse. [facility] Primary Care [address] [place] [address] [id number] [address] [id number] Use phenergan as needed for vomiting. Drink plenty of small sips of fluids and bland food as tolerated Follow up with finished cloth checker Return to ED As needed as discussed - My Orders Last 24 Hours: My Active Orders 04/23/19 21:37 Sodium Chloride 0.9% [Saline Flush] 10 ml FLUSH ASDIRECTED PRN Sodium Chloride 0.9% [Saline Flush] 2.5 ml FLUSH ASDIRECTED PRN Saline Lock Insert [OM.PC] Stat 04/23/19 21:50 Heart Tones [RC] ASDIRECTED 04/23/19 22:43 Promethazine [Phenadoz] 12.5 mg RECTAL Q6H PRN - Assessment/Plan Last 24 Hours: My Active Orders 04/23/19 21:37 Sodium Chloride 0.9% [Saline Flush] 10 ml FLUSH ASDIRECTED PRN Sodium Chloride 0.9% [Saline Flush] 2.5 ml FLUSH ASDIRECTED PRN Saline Lock Insert [OM.PC] Stat 04/23/19 21:50 Heart Tones [RC] ASDIRECTED 04/23/19 22:43 Promethazine [Phenadoz] 12.5 mg RECTAL Q6H PRN
[2019-04-23 22:32] LABS: BLOOD UREA NITROGEN,BUN 7 mg/dL (7.0-18.0); CARBON DIOXIDE,CO2 24.8 mmol/L (21.0-32.0); CHLORIDE,CL 103 mmol/L (98-107); GLUCOSE RANDOM 117 mg/dL (74-106); POTASSIUM,K 3.5 mmol/L (3.5-5.1); SODIUM,NA 139 mmol/L (136-145)
[2019-04-23] MEDS ORDERED: Promethazine 12.5 MG Supp RECTAL PRN (22:43)
[2019-04-23] MEDS ORDERED: Ondansetron 4 MG Tab.DIS PO ONE (23:02)
[2019-04-23] MEDS ORDERED: Ondansetron 4 MG Tab PO ONE (23:03)
[2019-04-24 01:16] VITALS: BP 104/66
== END 2019-04-23 23:20 | disposition home or self-care (01) ==
LOC: MW.ED 21:30
DX: O21.9 Vomiting of pregnancy, unspecified (principal); Z3A.14 14 weeks gestation of pregnancy; Z98.890 Other specified postprocedural states; Z90.49 Acquired absence of other specified parts of digestive tract
CPT/HCPCS: 36415; 80053; 81001; 85025; 96361; 96374; 96376; 99284; A9270; J2405; J7040

== ENCOUNTER 2019-10-06 00:20 | Inpatient (IN) | payer BC ==
[2019-10-06] MEDS ORDERED: Butorphanol 1 MG/ML SDV IVPUSH PRN (00:35)
[2019-10-06] MEDS ORDERED: Terbutaline 1 MG/ML SDV SUBCUT PRN (00:35)
[2019-10-06] MEDS ORDERED: Misoprostol 200 MCG Tab PO PRN (00:35)
[2019-10-06] MEDS ORDERED: Tranexamic Acid 1,000 MG in Sodium Chloride 0.9% 100 ML IV PRN ×2 (00:35→09:41)
[2019-10-06] MEDS ORDERED: Sodium Chloride 0.9% 10 ML Syringe FLUSH PRN (00:35)
[2019-10-06] MEDS ORDERED: Nalbuphine 10 MG/1 ML Vial IVPUSH PRN (00:35)
[2019-10-06] MEDS ORDERED: Ondansetron 4 MG/2 ML SDV IVPUSH PRN (00:35)
[2019-10-06] MEDS ORDERED: Misoprostol 25 MCG (1/4 of 100 MCG) Tab VAG PRN (00:35)
[2019-10-06] MEDS ORDERED: Sodium Chloride 0.9% 10 ML SDV IV PRN (00:35)
[2019-10-06] MEDS ORDERED: Sodium Chloride 0.9% 2.5 ML Syringe FLUSH PRN (00:35)
[2019-10-06] MEDS ORDERED: Methylergonovine 0.2 MG/1 ML Amp IM PRN (00:35)
[2019-10-06] MEDS ORDERED: Water For Irrigation,Sterile 1,000 ML Container IRR PRN (00:35)
[2019-10-06] MEDS ORDERED: Carboprost Tromethamine 250 MCG/1 ML Amp IM PRN (00:35)
[2019-10-06] MEDS ORDERED: Lidocaine 1% 50 ML MDV INJECT PRN (00:35)
[2019-10-06] MEDS ORDERED: Oxytocin/0.9 % Sodium Chloride 30 UNIT/500 ML BAG IV SCH ×2 (00:45)
[2019-10-06] MEDS ORDERED: Ampicillin 2 GM in Sodium Chloride 0.9% 100 ML IV ONE (01:00)
[2019-10-06] MEDS: Lactated Ringers 1,000 ML IV SCH ×2 (01:18→06:25)
[2019-10-06] MEDS: Ampicillin 1 GM in Sodium Chloride 0.9% 50 ML IV SCH ×2 (05:03→09:02)
--- NOTE | 2019-10-06 05:19 | PCM.PREANE ---
Preanesthetic Assessment - Anesthesia/Transfusion/Family Hx Anesthesia History: Prior Anesthesia Without Reaction Other Type of Anesthesia Reaction Comment: states mother has problems with N/V Family History of Anesthesia Reaction: Yes (PONV with GA) Transfusion History: No Prior Transfusion(s) Intubation History: Unknown - Review of Systems General: No Symptoms Pulmonary: No Symptoms Cardiovascular: No Symptoms Gastrointestinal: No Symptoms Neurological: No Symptoms Other: Reports: None - Physical Assessment Height: 5 ft 6 in Weight: 72.575 kg ASA Class: 2 Mental Status: Alert & Oriented x3 Airway Class: Mallampati = 2 Dentition: Reports: Normal Dentition Thyro-Mental Finger Breadths: 3 Mouth Opening Finger Breadths: 3 ROM/Head Extension: Full Lungs: Clear to Auscultation Cardiovascular: Regular Rate, Regular Rhythm - Lab Values: Laboratory Last Values WBC 13.17 K/uL (4.0-11.0) H 10/06/19 01:08 RBC 3.56 M/uL (4.30-5.90) L 10/06/19 01:08 Hgb 10.3 g/dL (12.0-16.0) L 10/06/19 01:08 Hct 29.8 % (36.0-46.0) L 10/06/19 01:08 MCV 83.7 fL (80.0-98.0) 10/06/19 01:08 MCH 28.9 pg (27.0-32.0) 10/06/19 01:08 MCHC 34.6 g/dL (31.0-37.0) 10/06/19 01:08 RDW Std Deviation 37.7 fl (28.0-62.0) 10/06/19 01:08 RDW Coeff of Sola 13 % (11.0-15.0) 10/06/19 01:08 Plt Count 258 K/uL (150-400) 10/06/19 01:08 MPV 11.40 fL (7.40-12.00) 10/06/19 01:08 POC Glucose 65 mg/dL (60-110) 10/06/19 03:20 TSH 3rd Generation 2.42 uIU/mL (0.36-3.74) 10/06/19 01:08 Ur Collection Duration 24 10/04/19 17:15 Urine Total Volume 1125 (800-1800) 10/04/19 17:15 Ur Total Protein Conc 33.4 mg/dL (0-14) H 10/04/19 17:15 Ur Total Protein 24 Hr 375.7 mg/24HRS 10/04/19 17:15 Blood Type A POSITIVE 10/06/19 01:08 Antibody Screen NEGATIVE 10/06/19 01:08 - Allergies Allergies/Adverse Reactions: Allergies Allergy/AdvReac Type Severity Reaction Status Date / Time No Known Allergies Allergy Verified 10/06/19 00:33 - Acknowledgements Anesthesia Type Planned: Epidural Pt an Appropriate Candidate for the Planned Anesthesia: Yes Alternatives and Risks of Anesthesia Discussed w Pt/Guardian: Yes Pt/Guardian Understands and Agrees with Anesthesia Plan: Yes PreAnesthesia Questionnaire HEENT History: Reports: Other (See Below) Other HEENT History: wears glasses Cardiovascular History: Reports: None Respiratory History: Reports: Other (See Below) (Acute cold) Gastrointestinal History: Reports: GERD, Other (See Below) Other Gastrointestinal History: cholestasis Genitourinary History: Reports: None 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: , Spontaneous : 2 Para: 0 LMP (Approximate): Musculoskeletal History: Reports: None Neurological History: Reports: Other (See Below) Other Neuro History: hx of motion sickness Psychiatric History: Reports: None Endocrine/Metabolic History: Reports: Diabetes, Gestational, Hyperthyroidism ([place] 'd) Other Endocrine/Metabolic History: Graves disease Hematologic History: Reports: None Immunologic History: Reports: None Oncologic (Cancer) History: Reports: None Dermatologic History: Reports: None - Infectious Disease History Infectious Disease History: Reports: Chicken Pox - Past Surgical History Head Surgeries/Procedures: Reports: None HEENT Surgical History: Reports: Oral Surgery Other HEENT Surgeries/Procedures: wisdom teeth GI Surgical History: Reports: Cholecystectomy, EGD Female Surgical History: Reports: D&C, Other (See Below) Other Female Surgeries/Procedures: excision of axillary breast tissue Endocrine Surgical History: Reports: None Musculoskeletal Surgical History: Reports: Other (See Below) Other Musculoskeletal Surgeries/Procedures:: excision of dorsal ganglion of left foot. excision of bony exostosis of left foot - SUBSTANCE USE Smoking Status *Q: Never Smoker Recreational Drug Use History: No - HOME MEDS Home Medications: Home Meds Cholecalciferol (Vitamin D3) [Vitamin D3] 2,000 unit PO DAILY 05/23/18 [History] Pnv No.95/Ferrous Fum/Folic AC [ Tablet] 1 tab PO DAILY 05/23/18 [ History] Methimazole [Tapazole] 5 mg PO DAILY 04/23/19 [History] - CURRENT (IN HOUSE) MEDS Current Meds: Current Medications Butorphanol Tartrate (Stadol) 1 mg IVPUSH Q1H PRN PRN Reason: Pain Carboprost Tromethamine (Hemabate Ds) 250 mcg IM ASDIRECTED PRN PRN Reason: Post Hemorrhage Ampicillin Sodium 1 gm/ Sodium (Chloride) 50 mls @ 100 mls/hr IV Q4H KARTHIK Last Admin: 10/06/19 05:03 Dose: 100 mls/hr Lactated Ringer's (Ringers, Lactated) 1,000 mls @ 150 mls/hr IV ASDIRECTED KARTHIK Last Infusion: 10/06/19 05:08 Dose: 400 mls/hr Oxytocin/Sodium Chloride (Oxytocin 30 Unit/500 Ml-Ns) 30 unit in 500 mls @ 500 mls/hr IV TITRATE KARTHIK Oxytocin/Sodium Chloride (Oxytocin 30 Unit/500 Ml-Ns) 30 unit in 500 mls @ 2 mls/hr IV TITRATE KARTHIK; Protocol Tranexamic Acid 1,000 mg/ (Sodium Chloride) 110 mls @ 660 mls/hr IV ONETIME PRN PRN Reason: Bleeding Lidocaine HCl (Xylocaine 1%) 50 ml INJECT ONETIME PRN PRN Reason: Laceration repair Methylergonovine Maleate (Methergine) 0.2 mg IM ASDIRECTED PRN PRN Reason: Post Hemorrhage Misoprostol (Cytotec) 200 mcg PO ONETIME PRN PRN Reason: Post Hemorrhage Misoprostol (Cytotec) 25 mcg VAG ONETIME PRN PRN Reason: Cervical Ripening Last Admin: 10/06/19 01:28 Dose: 25 mcg Nalbuphine HCl (Nubain) 10 mg IVPUSH Q1H PRN PRN Reason: Pain (severe 7-10) Ondansetron HCl (Zofran) 4 mg IVPUSH Q6H PRN PRN Reason: Nausea/Vomiting Sodium Chloride (Saline Flush) 10 ml FLUSH ASDIRECTED PRN PRN Reason: Keep Vein Open Last Admin: 10/06/19 05:07 Dose: 10 ml Sodium Chloride (Saline Flush) 2.5 ml FLUSH ASDIRECTED PRN PRN Reason: Keep Vein Open Sodium Chloride (Normal Saline) 10 ml IV ASDIRECTED PRN PRN Reason: IV Use Sterile Water (Sterile Water For Irrigation) 1,000 ml IRR ASDIRECTED PRN PRN Reason: delivery Terbutaline Sulfate (Brethine) 0.25 mg SUBCUT ASDIRECTED PRN PRN Reason: Tacysystole Discontinued Medications Ampicillin Sodium 2 gm/ Sodium (Chloride) 100 mls @ 200 mls/hr IV ONETIME ONE Stop: 10/06/19 01:29 Last Admin: 10/06/19 01:19 Dose: 200 mls/hr
[2019-10-06] MEDS ORDERED: Bupivicaine/fentaNYL/NS 250 ML ONE (05:21)
[2019-10-06] MEDS ORDERED: Bupivacaine 0.25% 10 ML SDV ONE (07:45)
--- NOTE | 2019-10-06 09:35 | PCM.DEL ---
L & D Note - General Info Date of Service: 10/06/19 Mother's Due Date: 10/21/19 - Delivery Note Labor: Induced by Oxytocin Cervical Ripening Method: Misoprostil Delivery Outcome: Livebirth Infant Delivery Method: Spontaneous Vaginal Delivery-Single Presentation: Left Occiput Anterior (IVA) Nuchal Cord: None Prep: Other Anesthesia Type: Epidural Amniotic Fluid Description: Clear Episiotomy Type: None Laceration: None Placenta: Intact, Spontaneous Cord: 3 Vessels Estimated Blood Loss: 200 Gable: Suctioned, Bulb Syringe Score 1 min: 8 Score 5 min: 9 Delivery Comments (Free Text/Narrative):: Cholestasis of , pre-eclampsia Liveborn female, weight pending. - General Info Date of Service: 10/06/19 - Patient Data Weight - Most Recent: 72.575 kg Lab Results Last 24 Hours: Laboratory Results - last 24 hr 10/04/19 10/06/19 10/06/19 Range/Units 17:15 01:08 01:08 WBC 13.17 H (4.0-11.0) K/uL RBC 3.56 L (4.30-5.90) M/uL Hgb 10.3 L (12.0-16.0) g/dL Hct 29.8 L (36.0-46.0) % MCV 83.7 (80.0-98.0) fL MCH 28.9 (27.0-32.0) pg MCHC 34.6 (31.0-37.0) g/dL RDW Std Deviation 37.7 (28.0-62.0) fl RDW Coeff of Sola 13 (11.0-15.0) % Plt Count 258 (150-400) K/uL MPV 11.40 (7.40-12.00) fL POC Glucose (60-110) mg/dL TSH 3rd Generation (0.36-3.74) uIU/mL Ur Collection Duration 24 Urine Total Volume 1125 (800-1800) Ur Total Protein Conc 33.4 H (0-14) mg/dL Ur Total Protein 24 Hr 375.7 mg/24HRS Blood Type A POSITIVE Antibody Screen NEGATIVE 10/06/19 10/06/19 10/06/19 Range/Units 01:08 01:37 03:20 WBC (4.0-11.0) K/uL RBC (4.30-5.90) M/uL Hgb (12.0-16.0) g/dL Hct (36.0-46.0) % MCV (80.0-98.0) fL MCH (27.0-32.0) pg MCHC (31.0-37.0) g/dL RDW Std Deviation (28.0-62.0) fl RDW Coeff of Sola (11.0-15.0) % Plt Count (150-400) K/uL MPV (7.40-12.00) fL POC Glucose 74 65 (60-110) mg/dL TSH 3rd Generation 2.42 (0.36-3.74) uIU/mL Ur Collection Duration Urine Total Volume (800-1800) Ur Total Protein Conc (0-14) mg/dL Ur Total Protein 24 Hr mg/24HRS Blood Type Antibody Screen 10/06/19 10/06/19 10/06/19 Range/Units 05:10 07:05 08:25 WBC (4.0-11.0) K/uL RBC (4.30-5.90) M/uL Hgb (12.0-16.0) g/dL Hct (36.0-46.0) % MCV (80.0-98.0) fL MCH (27.0-32.0) pg MCHC (31.0-37.0) g/dL RDW Std Deviation (28.0-62.0) fl RDW Coeff of Sola (11.0-15.0) % Plt Count (150-400) K/uL MPV (7.40-12.00) fL POC Glucose 66 70 70 (60-110) mg/dL TSH 3rd Generation (0.36-3.74) uIU/mL Ur Collection Duration Urine Total Volume (800-1800) Ur Total Protein Conc (0-14) mg/dL Ur Total Protein 24 Hr mg/24HRS Blood Type Antibody Screen Med Orders - Current: Current Medications Butorphanol Tartrate (Stadol) 1 mg IVPUSH Q1H PRN PRN Reason: Pain Carboprost Tromethamine (Hemabate Ds) 250 mcg IM ASDIRECTED PRN PRN Reason: Post Hemorrhage Ampicillin Sodium 1 gm/ Sodium (Chloride) 50 mls @ 100 mls/hr IV Q4H KARTHIK Last Admin: 10/06/19 09:02 Dose: 100 mls/hr Lactated Ringer's (Ringers, Lactated) 1,000 mls @ 150 mls/hr IV ASDIRECTED KARTHIK Last Admin: 10/06/19 06:25 Dose: 150 mls/hr Oxytocin/Sodium Chloride (Oxytocin 30 Unit/500 Ml-Ns) 30 unit in 500 mls @ 500 mls/hr IV TITRATE KARTHIK Oxytocin/Sodium Chloride (Oxytocin 30 Unit/500 Ml-Ns) 30 unit in 500 mls @ 2 mls/hr IV TITRATE [facility]; Protocol Tranexamic Acid 1,000 mg/ (Sodium Chloride) 110 mls @ 660 mls/hr IV ONETIME PRN PRN Reason: Bleeding Lidocaine HCl (Xylocaine 1%) 50 ml INJECT ONETIME PRN PRN Reason: Laceration repair Methylergonovine Maleate (Methergine) 0.2 mg IM ASDIRECTED PRN PRN Reason: Post Hemorrhage Misoprostol (Cytotec) 200 mcg PO ONETIME PRN PRN Reason: Post Hemorrhage Misoprostol (Cytotec) 25 mcg VAG ONETIME PRN PRN Reason: Cervical Ripening Last Admin: 10/06/19 01:28 Dose: 25 mcg Nalbuphine HCl (Nubain) 10 mg IVPUSH Q1H PRN PRN Reason: Pain (severe 7-10) Ondansetron HCl (Zofran) 4 mg IVPUSH Q6H PRN PRN Reason: Nausea/Vomiting Sodium Chloride (Saline Flush) 10 ml FLUSH ASDIRECTED PRN PRN Reason: Keep Vein Open Last Admin: 10/06/19 05:07 Dose: 10 ml Sodium Chloride (Saline Flush) 2.5 ml FLUSH ASDIRECTED PRN PRN Reason: Keep Vein Open Sodium Chloride (Normal Saline) 10 ml IV ASDIRECTED PRN PRN Reason: IV Use Sterile Water (Sterile Water For Irrigation) 1,000 ml IRR ASDIRECTED PRN PRN Reason: delivery Terbutaline Sulfate (Brethine) 0.25 mg SUBCUT ASDIRECTED PRN PRN Reason: Tacysystole Discontinued Medications Bupivacaine HCl (Sensorcaine-Mpf 0.25%) Confirm Administered Dose 10 ml .ROUTE .[facility] ONE Stop: 10/06/19 07:46 Ampicillin Sodium 2 gm/ Sodium (Chloride) 100 mls @ 200 mls/hr IV ONETIME ONE Stop: 10/06/19 01:29 Last Admin: 10/06/19 01:19 Dose: 200 mls/hr Fentanyl/Bupivacaine HCl (Fentanyl/Bupivacaine/Ns 2 Mcg-0.125% 250 Ml) Confirm Administered Dose 250 mls @ as directed .ROUTE .[facility] ONE Stop: 10/06/19 05:22 Last Admin: 10/06/19 06:35 Dose: Not Given - Problem List & Annotations (1) Pre-eclampsia affecting childbirth SNOMED Code(s): 773073326, 907238270 Code(s): O14.94 - UNSPECIFIED PRE-ECLAMPSIA, COMPLICATING CHILDBIRTH Status : Acute Current Visit: Yes - Problem List Review Problem List Initiated/Reviewed/Updated: Yes - My Orders Last 24 Hours: My Active Orders 10/06/19 00:20 Patient Status [ADT] Routine 10/06/19 00:35 Butorphanol [Stadol] 1 mg IVPUSH Q1H PRN Carboprost Tromethamine [Hemabate DS] 250 mcg IM ASDIRECTED PRN Lidocaine 1% [Xylocaine 1%] 50 ml INJECT ONETIME PRN Methylergonovine [Methergine] 0.2 mg IM ASDIRECTED PRN Nalbuphine [Nubain] 10 mg IVPUSH Q1H PRN Ondansetron [Zofran] 4 mg IVPUSH Q6H PRN Sodium Chloride 0.9% [Normal Saline] 10 ml IV ASDIRECTED PRN Sodium Chloride 0.9% [Saline Flush] 10 ml FLUSH ASDIRECTED PRN Sodium Chloride 0.9% [Saline Flush] 2.5 ml FLUSH ASDIRECTED PRN Terbutaline [Brethine] 0.25 mg SUBCUT ASDIRECTED PRN Tranexamic Acid [Cyklokapron] 1,000 mg Sodium Chloride 0.9% [Normal Saline] 100 ml IV ONETIME Water For Irrigation,Sterile [Sterile Water for Irrigation] 1,000 ml IRR ASDIRECTED PRN miSOPROStoL [Cytotec] 200 mcg PO ONETIME PRN miSOPROStoL [Cytotec] 25 mcg VAG ONETIME PRN Resuscitation Status Routine 10/06/19 00:36 Bedrest Bathroom Privileges [RC] ASDIRECTED Communication Order [RC] ASDIRECTED Communication Order [RC] ASDIRECTED Communication Order [RC] ASDIRECTED Heart Tones [RC] CONTINUOUS Non Stress Test [RC] PER UNIT ROUTINE May Shower [RC] ASDIRECTED Notify Provider [RC] PRN Notify Provider [RC] PRN Notify Provider [RC] PRN Notify Provider [RC] STAT Oxygen Therapy [RC] ASDIRECTED Up ad [place] [RC] ASDIRECTED Vaginal Exam [RC] PRN Vaginal Exam [RC] PRN Vital Signs [RC] PER UNIT ROUTINE Vital Signs [RC] PER UNIT ROUTINE Scalp Electrode [WOMSER] Per Unit Routine Peripheral IV Insertion Adult [OM.PC] Routine 10/06/19 00:45 Lactated Ringers [Ringers, Lactated] 1,000 ml IV ASDIRECTED Oxytocin/0.9 % Sodium Chloride [Oxytocin 30 Unit/500 ML-NS] 30 unit in 500 ml IV TITRATE Oxytocin/0.9 % Sodium Chloride [Oxytocin 30 Unit/500 ML-NS] 30 unit in 500 ml IV TITRATE Medication Administration Instruction [OM.PC] Q3H 10/06/19 01:00 Blood Glucose Check, Bedside [RC] Q2H 10/06/19 01:08 RPR (SYPHILIS SERO) W/ RFLX [REF] Routine 10/06/19 05:00 Ampicillin 1 gm Sodium Chloride 0.9% [Normal Saline] 50 ml IV Q4H 10/06/19 Breakfast Clear Liquid Diet [DIET]
[2019-10-06] MEDS ORDERED: Lanolin 100% Cream 7 GM Tube TOP PRN (09:41)
[2019-10-06] MEDS ORDERED: Witch Hazel Medicated Pads 40/Jar TOP PRN (09:41)
[2019-10-06] MEDS ORDERED: Bisacodyl 10 MG Supp RECTAL PRN (09:41)
[2019-10-06] MEDS ORDERED: Docusate Sodium 100 MG Cap PO PRN (09:41)
[2019-10-06] MEDS ORDERED: Benzocaine/Menthol 20%-0.5% Spray 78 GM Cannister TOP PRN (09:41)
[2019-10-06] MEDS ORDERED: Ibuprofen 800 MG Tab PO PRN (09:41)
[2019-10-06] MEDS ORDERED: oxyCODONE 5 MG Tab PO PRN (09:41)
[2019-10-06] MEDS ORDERED: Acetaminophen 500 MG Tab PO PRN ×2 (09:41)
[2019-10-06] MEDS: Ibuprofen 400 MG Tab PO PRN ×3 (12:07→23:57)
--- NOTE | 2019-10-06 14:36 | PCM48HPAN ---
Post Anesthesia Note - EVALUATION WITHIN 48HRS OF ANESTHETIC Vital Signs in Normal Range: Yes Patient Participated in Evaluation: Yes Respiratory Function Stable: Yes Airway Patent: Yes Cardiovascular Function Stable: Yes Hydration Status Stable: Yes Pain Control Satisfactory: Yes Nausea and Vomiting Control Satisfactory: Yes Mental Status Recovered: Yes
--- NOTE | 2019-10-06 15:10 | OR ---
SURGEON: Tammy Sanchez M.D. DATE OF PROCEDURE: 10/06/2019 PREOPERATIVE DIAGNOSES: A 37-6/7 weeks' intrauterine , mild preeclampsia, cholestasis of , gestational diabetes, group B strep positive. POSTOPERATIVE DIAGNOSES: A 37-67 weeks' intrauterine , mild preeclampsia, cholestasis of , gestational diabetes, group B strep positive. PROCEDURES: Cytotec induction of labor, term spontaneous vaginal delivery. PRIMARY SURGEON: Tammy Sanchez MD. ANESTHESIA: Epidural. ESTIMATED BLOOD LOSS: Less than 200 mL. FINDINGS: Liveborn female. score of 8 and 9. Weight is pending at the time of dictation. Placenta spontaneous, Schultze intact, with 3 vessels. Perineum intact. COMPLICATIONS: None known. DISPOSITION: Mother and baby in LDR in good condition. BRIEF HISTORY: This is a 29-year-old female. She presented at 37-6/7 weeks' gestation, having had reported itching on her soles of her feet and her palms and pruritus was becoming worse. Laboratory studies were obtained and bile salts were elevated. Additionally, she had blood pressures. Her baseline blood pressures were low normal and presented with blood pressures with diastolics in the 80, proteinuria at 375 mg; and therefore, I did recommend proceeding with induction of labor. She was known to be group B strep positive. She received multiple doses of ampicillin. She received a single dose of Cytotec, which induced labor. She had artificial rupture of membranes. IUPC was placed. She had category 1 with brief episodes of category 2 heart tones throughout labor. She progressed to complete. DESCRIPTION OF PROCEDURE: With the patient in dorsal lithotomy position, the patient pushed over 1 hour and 10 minutes time-period to a 5+ station at which time the head was delivered spontaneously and atraumatically over the perineum with support with subsequent delivery of the infant's shoulders and body without any difficulty. The was bulb suctioned by nose and mouth and after the cord had ceased to pulsate it was doubly clamped and cut. The was handed to the mother in the presence of the nurse attending delivery. The infant was a liveborn female. score of 8 and 9. Weight is pending at the time of dictation. Cord blood was collected for cord ABGs as well as routine cord blood sampling. Pitocin was initiated after delivery of the to assist with delivery of the placenta, which was delivered spontaneously, Franciscoe intact, with 3 vessels. Upon inspection of the pelvis and perineum, there were no periurethral, vaginal sidewall, cervical, rectal, or perineal lacerations. There was an abrasion of a piece of a skin fold at the hymenal opening, which was trimmed, and there was also an abrasion of the right upper labia that did not require sutures. Final sponge, needle, and instrument counts were reported as correct. There were no known complications. Mother and baby are in LDR in good condition. MAXIMILIAN / TALISHA /[id number]
[2019-10-07 05:36] LABS: BLOOD UREA NITROGEN,BUN 8 mg/dL (7.0-18.0); CARBON DIOXIDE,CO2 26.1 mmol/L (21.0-32.0); CHLORIDE,CL 106 mmol/L (98-107); GLUCOSE RANDOM 81 mg/dL (74-106); POTASSIUM,K 4.1 mmol/L (3.5-5.1); SODIUM,NA 141 mmol/L (136-145)
[2019-10-07] MEDS: Ibuprofen 400 MG Tab PO PRN ×2 (08:15→14:58)
[2019-10-07] MEDS ORDERED: Prenatal Multivitamin and Multimineral with Iron Tab PO SCH (09:00)
[2019-10-07] MEDS ORDERED: Cholecalciferol (Vitamin D3) 25 MCG Tab PO SCH (09:00)
[2019-10-07] MEDS ORDERED: Methimazole 5 MG Tab PO SCH (09:00)
--- NOTE | 2019-10-07 09:05 | PCM48HPAN ---
Post Anesthesia Note - EVALUATION WITHIN 48HRS OF ANESTHETIC Vital Signs in Normal Range: Yes Patient Participated in Evaluation: Yes Respiratory Function Stable: Yes Airway Patent: Yes Cardiovascular Function Stable: Yes Hydration Status Stable: Yes Pain Control Satisfactory: Yes Nausea and Vomiting Control Satisfactory: Yes Mental Status Recovered: Yes Vital Signs: Last Vital Signs Temp 36.6 C 10/07/19 04:43 Pulse 80 10/07/19 04:43 Resp 18 10/07/19 04:43 BP 108/78 10/07/19 04:43 Pulse Ox 97 10/07/19 04:43
--- NOTE | 2019-10-07 12:11 | PCM.PNPP ---
- General Info Date of Service: 10/07/19 Subjective Update: 29yo P1 s/p , PPD 1 denies any complains Functional Status: Reports: Pain Controlled, Tolerating Diet, Ambulating, Urinating - Review of Systems General: Reports: No Symptoms HEENT: Reports: No Symptoms Pulmonary: Reports: No Symptoms Cardiovascular: Reports: No Symptoms Gastrointestinal: Reports: No Symptoms Genitourinary: Reports: No Symptoms Musculoskeletal: Reports: No Symptoms Skin: Reports: No Symptoms Neurological: Reports: No Symptoms Psychiatric: Reports: No Symptoms - General Info Date of Service: 10/07/19 - Patient Data Vital Signs - Most Recent: Last Vital Signs Temp 36.6 C 10/07/19 08:00 Pulse 79 10/07/19 08:00 Resp 18 10/07/19 08:00 BP 112/74 10/07/19 08:00 Pulse Ox 98 10/07/19 08:00 Weight - Most Recent: 72.575 kg Lab Results - Last 24 Hours: Laboratory Results - last 24 hr 10/07/19 10/07/19 Range/Units 05:15 05:15 Hgb 9.9 L (12.0-16.0) g/dL Hct 29.5 L (36.0-46.0) % Sodium 141 (136-145) mmol/L Potassium 4.1 (3.5-5.1) mmol/L Chloride 106 (98-107) mmol/L Carbon Dioxide 26.1 (21.0-32.0) mmol/L BUN 8 (7.0-18.0) mg/dL Creatinine 0.8 (0.6-1.0) mg/dL Est Cr Clr Drug Dosing 98.88 mL/min Estimated GFR (MDRD) > 60.0 ml/min Glucose 81 (74-106) mg/dL Calcium 8.3 L (8.5-10.1) mg/dL Med Orders - Current: Current Medications Acetaminophen (Tylenol Extra Strength) 500 mg PO Q4H PRN PRN Reason: Pain Acetaminophen (Tylenol Extra Strength) 1,000 mg PO Q4H PRN PRN Reason: Pain Benzocaine/Menthol (Dermoplast Pain Relief 20%-0.5% [place]) 78 gm TOP ASDIRECTED PRN PRN Reason: Perineal Comfort Measure Bisacodyl (Dulcolax) 10 mg RECTAL ONETIME PRN PRN Reason: Constipation Cholecalciferol (Vitamin D3) 50 mcg PO DAILY [facility] Last Admin: 10/07/19 08:16 Dose: 50 mcg Docusate Sodium (Colace) 100 mg PO BID PRN PRN Reason: Constipation Emollient Ointment (Lansinoh Hpa) 0 gm TOP ASDIRECTED PRN PRN Reason: Sore Nipples Last Admin: 10/06/19 12:35 Dose: 1 tube Tranexamic Acid 1,000 mg/ (Sodium Chloride) 110 mls @ 660 mls/hr IV ONETIME PRN PRN Reason: Bleeding Ibuprofen (Motrin) 400 mg PO Q4H PRN PRN Reason: Pain Last Admin: 10/07/19 08:15 Dose: 400 mg Ibuprofen (Motrin) 800 mg PO Q6H PRN PRN Reason: Pain Methimazole (Methimazole) 5 mg PO DAILY [facility] Last Admin: 10/07/19 08:17 Dose: 5 mg Oxycodone HCl (Oxycodone) 5 mg PO Q2H PRN PRN Reason: Pain Prenat Multivit/[place]/Iron/Folic Ac ( Mtr) 1 each PO DAILY [facility] [place] Tiffany (Tucks) 1 pad TOP ASDIRECTED PRN PRN Reason: comfort care Last Admin: 10/06/19 12:36 Dose: 1 container Discontinued Medications Bupivacaine HCl (Sensorcaine-Mpf 0.25%) Confirm Administered Dose 10 ml .ROUTE .[facility] ONE Stop: 10/06/19 07:46 Butorphanol Tartrate (Stadol) 1 mg IVPUSH Q1H PRN PRN Reason: Pain Carboprost Tromethamine (Hemabate Ds) 250 mcg IM ASDIRECTED PRN PRN Reason: Post Hemorrhage Ampicillin Sodium 2 gm/ Sodium (Chloride) 100 mls @ 200 mls/hr IV ONETIME ONE Stop: 10/06/19 01:29 Last Admin: 10/06/19 01:19 Dose: 200 mls/hr Ampicillin Sodium 1 gm/ Sodium (Chloride) 50 mls @ 100 mls/hr IV Q4H [facility] Last Admin: 10/06/19 09:02 Dose: 100 mls/hr Lactated Ringer's (Ringers, Lactated) 1,000 mls @ 150 mls/hr IV ASDIRECTED [facility] Last Admin: 02/14/20 06:25 Dose: 150 mls/hr Oxytocin/Sodium Chloride (Oxytocin 30 Unit/500 Ml-Ns) 30 unit in 500 mls @ 500 mls/hr IV TITRATE KARTHIK Last Admin: 10/06/19 09:25 Dose: 500 mls/hr Oxytocin/Sodium Chloride (Oxytocin 30 Unit/500 Ml-Ns) 30 unit in 500 mls @ 2 mls/hr IV TITRATE KARTHIK; Protocol Tranexamic Acid 1,000 mg/ (Sodium Chloride) 110 mls @ 660 mls/hr IV ONETIME PRN PRN Reason: Bleeding Fentanyl/Bupivacaine HCl (Fentanyl/Bupivacaine/Ns 2 Mcg-0.125% 250 Ml) Confirm Administered Dose 250 mls @ as directed .ROUTE .[facility] ONE Stop: 10/06/19 05:22 Last Admin: 10/06/19 06:35 Dose: Not Given Lidocaine HCl (Xylocaine 1%) 50 ml INJECT ONETIME PRN PRN Reason: Laceration repair Methylergonovine Maleate (Methergine) 0.2 mg IM ASDIRECTED PRN PRN Reason: Post Hemorrhage Misoprostol (Cytotec) 200 mcg PO ONETIME PRN PRN Reason: Post Hemorrhage Misoprostol (Cytotec) 25 mcg VAG ONETIME PRN PRN Reason: Cervical Ripening Last Admin: 10/06/19 01:28 Dose: 25 mcg Nalbuphine HCl (Nubain) 10 mg IVPUSH Q1H PRN PRN Reason: Pain (severe 7-10) Ondansetron HCl (Zofran) 4 mg IVPUSH Q6H PRN PRN Reason: Nausea/Vomiting Sodium Chloride (Saline Flush) 10 ml FLUSH ASDIRECTED PRN PRN Reason: Keep Vein Open Last Admin: 10/06/19 05:07 Dose: 10 ml Sodium Chloride (Saline Flush) 2.5 ml FLUSH ASDIRECTED PRN PRN Reason: Keep Vein Open Sodium Chloride (Normal Saline) 10 ml IV ASDIRECTED PRN PRN Reason: IV Use Sterile Water (Sterile Water For Irrigation) 1,000 ml IRR ASDIRECTED PRN PRN Reason: delivery Terbutaline Sulfate (Brethine) 0.25 mg SUBCUT ASDIRECTED PRN PRN Reason: Tacysystole - Infant Interaction Support Person: , Mother - Recovery Exam Fundal Tone: Firm Fundal Level: 2 Fingerbreadths Below Umbilicus Fundal Placement: Midline Lochia Amount: Scant Lochia Color: Rubra/Red Perineum Description: Intact, Minimal Bruising/Swelling Episiotomy/Laceration: None Bladder Status: Nonpalpable, Voiding Urinary Elimination: Voided - Exam General: Alert HEENT: Pupils Equal Neck: Supple Lungs: Clear to Auscultation Cardiovascular: Regular Rate, Regular Rhythm GI/Abdominal Exam: Normal Bowel Sounds Extremities: Normal Inspection - Problem List & Annotations (1) Vaginal delivery SNOMED Code(s): 989126335 Code(s): O80 - ENCOUNTER FOR FULL-TERM UNCOMPLICATED DELIVERY Status: Acute Current Visit: Yes - Problem List Review Problem List Initiated/Reviewed/Updated: Yes - Assessment Assessment:: 29yo P1 s/p , PPD 1 - Plan Plan:: Routine care Ancticipate discharge tomorrow
[2019-10-07 17:50] VITALS: BP 122/77; PULSE 93
== END 2019-10-07 19:20 | disposition home or self-care (01) | DRG 560 ==
LOC: MW.OBCHECK 00:20 → MW.OB 00:21 → OBSVTOIN 09:23 → MW.OB 15:03
PROVIDERS: ADMIT Obstetrics & Gynecology; ATTEND Obstetrics & Gynecology
PROC: 10E0XZZ Delivery of Products of Conception, External Approach (ICD-10-PCS; principal; 2019-10-06)
PROC: 3E0P7VZ Introduction of Hormone into Female Reproductive, Via Natural or Artificial Opening (ICD-10-PCS; 2019-10-06)
PROC: 3E033VJ Introduction of Other Hormone into Peripheral Vein, Percutaneous Approach (ICD-10-PCS; 2019-10-06)
PROC: 3E0R3BZ Introduction of Anesthetic Agent into Spinal Canal, Percutaneous Approach (ICD-10-PCS; 2019-10-06)
PROC: 00HU33Z Insertion of Infusion Device into Spinal Canal, Percutaneous Approach (ICD-10-PCS; 2019-10-06)
DX: O14.04 Mild to moderate pre-eclampsia, complicating childbirth (principal); O26.62 Liver and biliary tract disorders in childbirth; K83.1 Obstruction of bile duct; O24.429 Gestational diabetes mellitus in childbirth, unspecified control; O99.824 Streptococcus B carrier state complicating childbirth; Z3A.37 37 weeks gestation of pregnancy; Z37.0 Single live birth
CPT/HCPCS: 01967; 36415; 59025; 59409; 80048; 82803; 82962; 84156; 84443; 85014; 85018; 85027; 86592; 86850; 86900; 86901; A9270-GY; J0290; J2590; J3490; J7050; J7120

== ENCOUNTER 2021-11-26 10:43 | Emergency (ER) | payer BC ==
[2021-11-26] MEDS ORDERED: Ondansetron 4 MG/2 ML SDV IVPUSH ONE (10:57)
[2021-11-26] MEDS ORDERED: Sodium Chloride 0.9% 1,000 ML IV ONE ×2 (10:57→11:53)
[2021-11-26 11:39] LABS: BLOOD UREA NITROGEN,BUN 14 mg/dL (7.0-18.0); CARBON DIOXIDE,CO2 26.2 mmol/L (21.0-32.0); CHLORIDE,CL 101 mmol/L (98-107); GLUCOSE RANDOM 88 mg/dL (74-106); POTASSIUM,K 3.7 mmol/L (3.5-5.1); SODIUM,NA 135 mmol/L (136-145)
[2021-11-26] MEDS ORDERED: Metoclopramide 10 MG/2 ML SDV IV ONE (12:37)
[2021-11-26 14:29] VITALS: BP 99/60; PULSE 92
== END 2021-11-26 14:26 | disposition home or self-care (01) ==
LOC: MW.ED 10:43
DX: O21.9 Vomiting of pregnancy, unspecified (principal); Z3A.01 Less than 8 weeks gestation of pregnancy
CPT/HCPCS: 36415; 80053; 81003; 84702; 85025; 96374; 96375; 99284; J2405; J2765; J7030; 99283

== ENCOUNTER 2021-12-25 22:41 | Emergency (ER) | payer BC ==
[2021-12-25] MEDS ORDERED: Sodium Chloride 0.9% 1,000 ML IV ONE (22:49)
[2021-12-25] MEDS ORDERED: Ondansetron 4 MG/2 ML SDV IVPUSH ONE (22:49)
[2021-12-25] MEDS ORDERED: Promethazine 25 MG/ML SDV IM ONE (22:50)
[2021-12-26 00:08] LABS: BLOOD UREA NITROGEN,BUN 11 mg/dL (7.0-18.0); CARBON DIOXIDE,CO2 20.4 mmol/L (21.0-32.0); CHLORIDE,CL 101 mmol/L (98-107); GLUCOSE RANDOM 118 mg/dL (74-106); POTASSIUM,K 3.7 mmol/L (3.5-5.1); SODIUM,NA 136 mmol/L (136-145)
[2021-12-26] MEDS ORDERED: Dextrose 5%-0.45% NaCl 1,000 ML IV SCH (00:15)
[2021-12-26 00:41] LABS: CORONAVIRUS COVID-19 NAA NEGATIVE (NEGATIVE); INFLUENZA A NAA NEGATIVE (NEGATIVE); INFLUENZA B NAA NEGATIVE (NEGATIVE)
[2021-12-26] MEDS ORDERED: Promethazine 25 MG Tab PO STA (00:48)
[2021-12-26] MEDS ORDERED: Ondansetron 4 MG/2 ML SDV IVPUSH ONE (00:48)
[2021-12-26 02:12] VITALS: BP 123/78; PULSE 88
== END 2021-12-26 01:59 | disposition home or self-care (01) ==
LOC: MW.ED 22:41
DX: O21.0 Mild hyperemesis gravidarum (principal); Z3A.11 11 weeks gestation of pregnancy; Z90.49 Acquired absence of other specified parts of digestive tract; Z79.899 Other long term (current) drug therapy; Z20.822 Contact with and (suspected) exposure to COVID-19
CPT/HCPCS: 0240U; 36415; 80053; 81001; 82009; 83735; 84439; 84443; 84702; 85025; 96372; 96374; 96376; 99284; A9270; J2405; J2550; J7030; J7042

== ENCOUNTER 2022-07-03 06:43 | Inpatient (IN) | payer BC ==
[2022-07-03] MEDS: Lactated Ringers 1,000 ML IV SCH ×2 (07:15→08:30)
[2022-07-03] MEDS ORDERED: Ampicillin 2 GM AdvVial IV ONE (07:42)
[2022-07-03] MEDS ORDERED: Sodium Chloride 0.9% 100 ML ONE (07:43)
[2022-07-03] MEDS ORDERED: Ropivacaine/PF 400 MG/200 ML PCA ONE (07:46)
[2022-07-03] MEDS ORDERED: Lidocaine 1% 50 ML MDV INJECT PRN (07:48)
[2022-07-03] MEDS ORDERED: Methylergonovine 0.2 MG/1 ML Amp IM PRN (07:48)
[2022-07-03] MEDS ORDERED: Water For Irrigation,Sterile 1,000 ML Container IRR PRN (07:48)
[2022-07-03] MEDS ORDERED: Ondansetron 4 MG/2 ML SDV IVPUSH PRN (07:48)
[2022-07-03] MEDS ORDERED: Carboprost Tromethamine 250 MCG/1 ML Amp IM PRN (07:48)
[2022-07-03] MEDS ORDERED: Butorphanol 1 MG/ML SDV IVPUSH PRN (07:48)
[2022-07-03] MEDS ORDERED: Sodium Chloride 0.9% 2.5 ML Syringe FLUSH PRN (07:48)
[2022-07-03] MEDS ORDERED: Tranexamic Acid 1,000 MG in Sodium Chloride 0.9% 100 ML IV PRN (07:48)
[2022-07-03] MEDS ORDERED: Misoprostol 200 MCG Tab PO PRN (07:48)
[2022-07-03] MEDS ORDERED: Ampicillin 2 GM in Sodium Chloride 0.9% 100 ML IV ONE (07:48)
[2022-07-03] MEDS ORDERED: Sodium Chloride 0.9% 20 ML SDV IV PRN (07:48)
[2022-07-03] MEDS ORDERED: Sodium Chloride 0.9% 10 ML Syringe FLUSH PRN (07:48)
[2022-07-03] MEDS ORDERED: Oxytocin/0.9 % Sodium Chloride 30 UNIT/500 ML BAG IV SCH (08:00)
[2022-07-03] MEDS ORDERED: ePHEDrine 50 MG/ML SDV IVPUSH PRN (08:08)
[2022-07-03] MEDS ORDERED: Phenylephrine HCl In 0.9% NaCl 1 MG/10 ML Vial IVPUSH SCH (08:15)
[2022-07-03] MEDS ORDERED: Ropivacaine HCl/PF 400 MG in Premix Bag 1 BAG EPIDUR SCH (08:15)
[2022-07-03] MEDS ORDERED: Ampicillin 1 GM in Sodium Chloride 0.9% 50 ML IV SCH (12:00)
[2022-07-03] MEDS ORDERED: Docusate Sodium 100 MG Cap PO PRN (12:05)
[2022-07-03] MEDS ORDERED: Witch Hazel Medicated Pads 40/Jar TOP PRN (12:05)
[2022-07-03] MEDS ORDERED: Lanolin 100% Cream 7 GM Tube TOP PRN (12:05)
[2022-07-03] MEDS ORDERED: Acetaminophen 500 MG Tab PO PRN ×2 (12:05)
[2022-07-03] MEDS ORDERED: oxyCODONE 5 MG Tab PO PRN (12:05)
[2022-07-03] MEDS ORDERED: Bisacodyl 10 MG Supp RECTAL PRN (12:05)
[2022-07-03] MEDS ORDERED: Benzocaine/Menthol 20%-0.5% Spray 78 GM Cannister TOP PRN (12:05)
[2022-07-03] MEDS ORDERED: Ibuprofen 400 MG Tab PO PRN (12:05)
[2022-07-03] MEDS: Ibuprofen 800 MG Tab PO PRN ×2 (15:39→21:24)
[2022-07-04] MEDS: Ibuprofen 800 MG Tab PO PRN (06:14)
[2022-07-04 08:07] VITALS: BP 118/77; PULSE 77
[2022-07-04] MEDS ORDERED: Dexmedetomidine 200 MCG/2 ML SDV ONE (08:22)
[2022-07-04] MEDS ORDERED: Sodium Ferric Gluconate Cmplex 125 MG in Sodium Chloride 0.9% 100 ML IV ONE (10:44)
== END 2022-07-04 15:45 | disposition home or self-care (01) | DRG 560 ==
LOC: MW.OBCHECK 06:43 → MW.OB 06:45 → OBSVTOIN 07:48 → MW.OBCHECK 07:48 → MW.OB 20:30
PROVIDERS: ADMIT Obstetrics & Gynecology; ATTEND Obstetrics & Gynecology
PROC: 10E0XZZ Delivery of Products of Conception, External Approach (ICD-10-PCS; principal; 2022-07-03)
PROC: 3E0R3BZ Introduction of Anesthetic Agent into Spinal Canal, Percutaneous Approach (ICD-10-PCS; 2022-07-03)
PROC: 00HU33Z Insertion of Infusion Device into Spinal Canal, Percutaneous Approach (ICD-10-PCS; 2022-07-03)
PROC: 10907ZC Drainage of Amniotic Fluid, Therapeutic from Products of Conception, Via Natural or Artificial Opening (ICD-10-PCS; 2022-07-03)
DX: O99.824 Streptococcus B carrier state complicating childbirth (principal); Z3A.38 38 weeks gestation of pregnancy; Z37.0 Single live birth; E05.00 Thyrotoxicosis with diffuse goiter without thyrotoxic crisis or storm; O21.0 Mild hyperemesis gravidarum
CPT/HCPCS: 01967; 36415; 51701; 51702; 59025; 59409; 82803; 85014; 85018; 85027; 86592; 86593; 86780; 86850; 86900; 86901; A9270-GY; J0290; J2590; J2795; J3490; J7120; U0002

== ENCOUNTER 2024-01-11 16:48 | Emergency (ER) | payer BC ==
[2024-01-11 17:27] VITALS: BP 111/73; PULSE 89
[2024-01-11 18:45] LABS: BASOPHILS ABSOLUTE AUTO 0.02 K/uL (0.00-0.20); BASOPHILS PERCENT AUTO 0.3 % (0.0-1.0); EOSINOPHILS ABSOLUTE AUTO 0.06 K/uL (0.00-0.45); EOSINOPHILS PERCENT AUTO 0.9 % (0.0-6.0); HEMATOCRIT 38.7 % (37.0-47.0); HEMOGLOBIN 13.7 g/dL (12.0-16.0); IMMATURE GRAN ABSOLUTE AUTO 0.01 K/uL (0.00-0.05); IMMATURE GRAN PERCENT AUTO 0.2 % (0.0-0.4); LYMPHOCYTES ABSOLUTE AUTO 1.08 K/uL (1.00-4.80); LYMPHOCYTES PERCENT AUTO 16.7 % (24.0-44.0); MEAN CORPUSCULAR HEMOGLOBIN 31.2 pg (28.0-32.0); MEAN CORPUSCULAR HGB CONC 35.4 g/dL (32.0-36.0); MEAN CORPUSCULAR VOLUME 88.2 fL (83.0-99.0); MONOCYTES ABSOLUTE AUTO 0.43 K/uL (0.00-0.80); MONOCYTES PERCENT AUTO 6.7 % (0.0-8.0); NEUTROPHILS ABSOLUTE AUTO 4.85 K/uL (1.80-7.70); NEUTROPHILS PERCENT AUTO 75.2 % (41.0-71.0); PLATELET COUNT,PLT 198 K/uL (150-400); RED BLOOD CELL COUNT 4.39 M/uL (4.10-5.30); WHITE BLOOD CELL COUNT,WBC 6.45 K/uL (3.9-11.3)
[2024-01-11 19:19] LABS: A/G RATIO 1.3 (0.9-1.6); ALBUMIN 4.2 g/dL (3.4-5.0); BILIRUBIN TOTAL 0.5 mg/dL (0.2-1.0); CALCIUM 9.3 mg/dL (8.5-10.1); CARBON DIOXIDE,CO2 28.6 mmol/L (21.0-32.0); CREATININE 0.8 mg/dL (0.6-1.0); EST CRCL DRUG DOSING (CG) 91.2 mL/min; POTASSIUM,K 3.9 mmol/L (3.5-5.1); PROTEIN TOTAL,TP 7.5 g/dL (6.4-8.2); TSH ULTRASENSITIVE 0.51 uIU/mL (0.36-3.74)
[2024-01-11 19:49] LABS: APPEARANCE,URINE CLEAR; BILIRUBIN,URINE NEGATIVE (NEGATIVE); COLOR,URINE YELLOW; GLUCOSE,URINE NEGATIVE (NEGATIVE); KETONES,URINE NEGATIVE (NEGATIVE); LEUKOCYTE ESTERASE,URINE NEGATIVE (NEGATIVE); NITRITE,URINE NEGATIVE (NEGATIVE); OCCULT BLOOD,URINE NEGATIVE (NEGATIVE); PH,URINE 6.5 (5.0-8.0); PROTEIN,URINE NEGATIVE (NEGATIVE); UROBILINOGEN,URINE 0.2 EU/dL (<2.0)
[2024-01-11] MEDS: Sodium Chloride 0.9% 1,000 ML IV ONE (19:51)
== END 2024-01-11 20:05 | disposition home or self-care (01) ==
LOC: MW.ED 16:48
DX: R00.2 Palpitations (principal); R42 Dizziness and giddiness; Z79.899 Other long term (current) drug therapy; Z75.8 Other problems related to medical facilities and other health care
CPT/HCPCS: 36415; 71045; 71045-26; 80053; 81003; 81025; 83735; 84443; 85025; 93005; 93010; 99282; 99285

== ENCOUNTER 2024-05-19 10:26 | Emergency (ER) | payer BC ==
[2024-05-19] MEDS ORDERED: Sodium Chloride 0.9% 2.5 ML Syringe FLUSH PRN (10:30)
[2024-05-19] MEDS: Sodium Chloride 0.9% 1,000 ML IV STA (10:59)
[2024-05-19] MEDS: Metoclopramide 10 MG/2 ML SDV IVPUSH STA (10:59)
[2024-05-19] MEDS: diphenhydrAMINE 50 MG/ML SDV IVPUSH STA (10:59)
[2024-05-19] MEDS: Sodium Chloride 0.9% 10 ML Syringe FLUSH PRN (11:00)
[2024-05-19 11:02] LABS: BASOPHILS ABSOLUTE AUTO 0.02 K/uL (0.00-0.20); BASOPHILS PERCENT AUTO 0.3 % (0.0-1.0); EOSINOPHILS ABSOLUTE AUTO 0.08 K/uL (0.00-0.45); EOSINOPHILS PERCENT AUTO 1.2 % (0.0-6.0); HEMATOCRIT 38.4 % (37.0-47.0); HEMOGLOBIN 13.7 g/dL (12.0-16.0); IMMATURE GRAN ABSOLUTE AUTO 0.02 K/uL (0.00-0.05); IMMATURE GRAN PERCENT AUTO 0.3 % (0.0-0.4); LYMPHOCYTES ABSOLUTE AUTO 1.13 K/uL (1.00-4.80); LYMPHOCYTES PERCENT AUTO 16.6 % (24.0-44.0); MEAN CORPUSCULAR HEMOGLOBIN 31.4 pg (28.0-32.0); MEAN CORPUSCULAR HGB CONC 35.7 g/dL (32.0-36.0); MEAN CORPUSCULAR VOLUME 88.1 fL (83.0-99.0); MEAN PLATELET VOLUME 10.2 fL (9.4-12.3); MONOCYTES ABSOLUTE AUTO 0.43 K/uL (0.00-0.80); MONOCYTES PERCENT AUTO 6.3 % (0.0-8.0); NEUTROPHILS ABSOLUTE AUTO 5.12 K/uL (1.80-7.70); NEUTROPHILS PERCENT AUTO 75.3 % (41.0-71.0); PLATELET COUNT,PLT 188 K/uL (150-400); RED BLOOD CELL COUNT 4.36 M/uL (4.10-5.30)
[2024-05-19 11:04] LABS: APPEARANCE,URINE CLEAR; BILIRUBIN,URINE NEGATIVE (NEGATIVE); COLOR,URINE YELLOW; GLUCOSE,URINE NEGATIVE (NEGATIVE); KETONES,URINE 15 mg/dL (NEGATIVE); LEUKOCYTE ESTERASE,URINE NEGATIVE (NEGATIVE); NITRITE,URINE NEGATIVE (NEGATIVE); OCCULT BLOOD,URINE NEGATIVE (NEGATIVE); PROTEIN,URINE NEGATIVE (NEGATIVE); UROBILINOGEN,URINE 0.2 EU/dL (<2.0)
[2024-05-19 11:28] LABS: A/G RATIO 1.2 (0.9-1.6); ALBUMIN 4.3 g/dL (3.4-5.0); BILIRUBIN TOTAL 0.8 mg/dL (0.2-1.0); CALCIUM 9.2 mg/dL (8.5-10.1); CARBON DIOXIDE,CO2 26.6 mmol/L (21.0-32.0); EST CRCL DRUG DOSING (CG) 71.42 mL/min; POTASSIUM,K 3.9 mmol/L (3.5-5.1); PROTEIN TOTAL,TP 7.9 g/dL (6.4-8.2)
[2024-05-19] MEDS: Pantoprazole 40 MG in Sodium Chloride 0.9% 10 ML IVPUSH STA (11:47)
[2024-05-19] MEDS: Dextrose 5%-0.9% NaCl 1,000 ML IV STA ×2 (11:47→12:46)
[2024-05-19] MEDS: Ondansetron 4 MG/2 ML SDV IVPUSH STA (11:47)
[2024-05-19 11:50] LABS: T3 FREE 3.85 pg/mL (2.18-3.98); T4 FREE 1.63 ng/dL (0.76-1.46); TSH ULTRASENSITIVE 0.01 uIU/mL (0.36-3.74)
[2024-05-19] MEDS: Prochlorperazine 10 MG/2 ML SDV IVPUSH STA (13:46)
[2024-05-19 14:47] VITALS: BP 96/56; PULSE 93
== END 2024-05-19 14:48 | disposition home or self-care (01) ==
LOC: MW.ED 10:26
DX: O21.9 Vomiting of pregnancy, unspecified (principal); E03.9 Hypothyroidism, unspecified; Z79.899 Other long term (current) drug therapy; Z75.8 Other problems related to medical facilities and other health care; Z3A.09 9 weeks gestation of pregnancy
CPT/HCPCS: 36415; 80053; 81003; 83690; 83735; 84439; 84443; 84481; 84702; 85025; 96361; 96374; 96375; 99284; J0780; J1200; J2405; J2470; J2765; J3490; J7030; J7042

== ENCOUNTER 2024-05-21 17:13 | Emergency (ER) | payer BC ==
[2024-05-21] MEDS ORDERED: Dextrose 5%-0.9% NaCl 1,000 ML IV STA (17:21)
[2024-05-21] MEDS: Thiamine 200 MG/2 ML MDV IVPUSH STA (17:34)
[2024-05-21] MEDS: Ondansetron 4 MG/2 ML SDV IVPUSH STA (17:34)
[2024-05-21] MEDS: Sodium Chloride 0.9% 1,000 ML IV STA ×2 (17:34→18:16)
[2024-05-21 17:44] LABS: BASOPHILS ABSOLUTE AUTO 0.05 K/uL (0.00-0.20); BASOPHILS PERCENT AUTO 0.8 % (0.0-1.0); EOSINOPHILS ABSOLUTE AUTO 0.03 K/uL (0.00-0.45); EOSINOPHILS PERCENT AUTO 0.5 % (0.0-6.0); HEMATOCRIT 39.2 % (37.0-47.0); HEMOGLOBIN 14.3 g/dL (12.0-16.0); IMMATURE GRAN ABSOLUTE AUTO 0.01 K/uL (0.00-0.05); IMMATURE GRAN PERCENT AUTO 0.2 % (0.0-0.4); LYMPHOCYTES PERCENT AUTO 15.2 % (24.0-44.0); MEAN CORPUSCULAR HEMOGLOBIN 31.2 pg (28.0-32.0); MEAN CORPUSCULAR HGB CONC 36.5 g/dL (32.0-36.0); MEAN CORPUSCULAR VOLUME 85.6 fL (83.0-99.0); MEAN PLATELET VOLUME 10.2 fL (9.4-12.3); MONOCYTES ABSOLUTE AUTO 0.37 K/uL (0.00-0.80); MONOCYTES PERCENT AUTO 5.6 % (0.0-8.0); NEUTROPHILS ABSOLUTE AUTO 5.13 K/uL (1.80-7.70); NEUTROPHILS PERCENT AUTO 77.7 % (41.0-71.0); PLATELET COUNT,PLT 217 K/uL (150-400); RED BLOOD CELL COUNT 4.58 M/uL (4.10-5.30); WHITE BLOOD CELL COUNT,WBC 6.59 K/uL (3.9-11.3)
[2024-05-21 17:47] LABS: APPEARANCE,URINE SLT CLOUDY; BILIRUBIN,URINE NEGATIVE (NEGATIVE); COLOR,URINE YELLOW; GLUCOSE,URINE NEGATIVE (NEGATIVE); KETONES,URINE >=80 mg/dL (NEGATIVE); LEUKOCYTE ESTERASE,URINE NEGATIVE (NEGATIVE); NITRITE,URINE NEGATIVE (NEGATIVE); OCCULT BLOOD,URINE NEGATIVE (NEGATIVE); PROTEIN,URINE NEGATIVE (NEGATIVE); UROBILINOGEN,URINE 0.2 EU/dL (<2.0)
[2024-05-21 18:19] LABS: A/G RATIO 1.3 (0.9-1.6); ALBUMIN 4.5 g/dL (3.4-5.0); BILIRUBIN TOTAL 1.1 mg/dL (0.2-1.0); CALCIUM 9.5 mg/dL (8.5-10.1); CARBON DIOXIDE,CO2 20.2 mmol/L (21.0-32.0); CREATININE 0.8 mg/dL (0.6-1.0); EST CRCL DRUG DOSING (CG) 87.99 mL/min; MAGNESIUM 1.9 mg/dL (1.8-2.4); POTASSIUM,K 3.7 mmol/L (3.5-5.1); T3 FREE 3.76 pg/mL (2.18-3.98); T4 FREE 1.86 ng/dL (0.76-1.46); TSH ULTRASENSITIVE 0.01 uIU/mL (0.36-3.74)
[2024-05-21] MEDS: Dextrose 5%-0.9% NaCl 1,000 ML IV STA (20:13)
[2024-05-21] MEDS: Prochlorperazine 10 MG/2 ML SDV IVPUSH STA (20:21)
[2024-05-21] MEDS: droPERidol 5 MG/2 ML SDV IVPUSH STA (20:32)
[2024-05-21 21:37] VITALS: BP 104/64; PULSE 94
== END 2024-05-21 21:37 | disposition home or self-care (01) ==
LOC: MW.ED 17:13
DX: O21.0 Mild hyperemesis gravidarum (principal); K21.9 Gastro-esophageal reflux disease without esophagitis; Z90.49 Acquired absence of other specified parts of digestive tract; Z79.899 Other long term (current) drug therapy; Z75.8 Other problems related to medical facilities and other health care; Z3A.09 9 weeks gestation of pregnancy
CPT/HCPCS: 36415; 80053; 81003; 83690; 83735; 84439; 84443; 84481; 85025; 96361; 96374; 96375; 99284; J1790; J2405; J3411; J7030; J7042

== ENCOUNTER 2024-05-25 12:38 | Emergency (ER) | payer BC ==
[2024-05-25] MEDS: Ondansetron 4 MG/2 ML SDV IVPUSH ONE (13:33)
[2024-05-25] MEDS: Sodium Chloride 0.9% 1,000 ML IV SCH ×2 (13:33→14:43)
[2024-05-25 13:49] LABS: BASOPHILS ABSOLUTE AUTO 0.03 K/uL (0.00-0.20); BASOPHILS PERCENT AUTO 0.4 % (0.0-1.0); EOSINOPHILS ABSOLUTE AUTO 0.08 K/uL (0.00-0.45); EOSINOPHILS PERCENT AUTO 1.2 % (0.0-6.0); HEMOGLOBIN 13.5 g/dL (12.0-16.0); IMMATURE GRAN ABSOLUTE AUTO 0.01 K/uL (0.00-0.05); IMMATURE GRAN PERCENT AUTO 0.1 % (0.0-0.4); LYMPHOCYTES ABSOLUTE AUTO 0.99 K/uL (1.00-4.80); LYMPHOCYTES PERCENT AUTO 14.2 % (24.0-44.0); MEAN CORPUSCULAR HEMOGLOBIN 31.3 pg (28.0-32.0); MEAN CORPUSCULAR HGB CONC 36.5 g/dL (32.0-36.0); MEAN CORPUSCULAR VOLUME 85.8 fL (83.0-99.0); MEAN PLATELET VOLUME 10.5 fL (9.4-12.3); MONOCYTES ABSOLUTE AUTO 0.41 K/uL (0.00-0.80); MONOCYTES PERCENT AUTO 5.9 % (0.0-8.0); NEUTROPHILS ABSOLUTE AUTO 5.43 K/uL (1.80-7.70); NEUTROPHILS PERCENT AUTO 78.2 % (41.0-71.0); PLATELET COUNT,PLT 203 K/uL (150-400); RED BLOOD CELL COUNT 4.31 M/uL (4.10-5.30); WHITE BLOOD CELL COUNT,WBC 6.95 K/uL (3.9-11.3)
[2024-05-25 13:56] LABS: BILIRUBIN,URINE NEGATIVE (NEGATIVE); COLOR,URINE YELLOW; GLUCOSE,URINE NEGATIVE (NEGATIVE); KETONES,URINE NEGATIVE (NEGATIVE); LEUKOCYTE ESTERASE,URINE NEGATIVE (NEGATIVE); NITRITE,URINE NEGATIVE (NEGATIVE); OCCULT BLOOD,URINE NEGATIVE (NEGATIVE); PH,URINE 7.5 (5.0-8.0); PROTEIN,URINE NEGATIVE (NEGATIVE); UROBILINOGEN,URINE 0.2 EU/dL (<2.0)
[2024-05-25 14:00] LABS: APPEARANCE,URINE SLT CLOUDY
[2024-05-25 14:32] LABS: A/G RATIO 1.4 (0.9-1.6); ALBUMIN 4.3 g/dL (3.4-5.0); BILIRUBIN TOTAL 0.6 mg/dL (0.2-1.0); CALCIUM 9.2 mg/dL (8.5-10.1); CARBON DIOXIDE,CO2 24.8 mmol/L (21.0-32.0); CREATININE 0.7 mg/dL (0.6-1.0); EST CRCL DRUG DOSING (CG) 100.06 mL/min; POTASSIUM,K 3.7 mmol/L (3.5-5.1); PROTEIN TOTAL,TP 7.4 g/dL (6.4-8.2); T3 FREE 3.85 pg/mL (2.18-3.98); T4 FREE 1.55 ng/dL (0.76-1.46); TSH ULTRASENSITIVE 0.01 uIU/mL (0.36-3.74)
[2024-05-25 15:53] VITALS: BP 109/80; PULSE 70
== END 2024-05-25 15:57 | disposition home or self-care (01) ==
LOC: MW.ED 12:38
DX: O21.0 Mild hyperemesis gravidarum (principal); Z75.8 Other problems related to medical facilities and other health care; Z79.899 Other long term (current) drug therapy; Z3A.00 Weeks of gestation of pregnancy not specified
CPT/HCPCS: 36415; 80053; 81003; 84439; 84443; 84481; 85025; 96361; 96374; 99284; J2405; J7030

== ENCOUNTER 2024-05-27 18:09 | Emergency (ER) | payer BC ==
[2024-05-27] MEDS ORDERED: Lactated Ringers 1,000 ML IV ONE (20:24)
[2024-05-27] MEDS ORDERED: Ondansetron 4 MG/2 ML SDV IVPUSH ONE (20:25)
== END 2024-05-27 20:15 | disposition left against medical advice (07) ==
LOC: MW.ED 18:09
DX: Z53.21 Procedure and treatment not carried out due to patient leaving prior to being seen by health care provider (principal)

== ENCOUNTER 2024-05-29 20:34 | Emergency (ER) | payer BC ==
[2024-05-29] MEDS: Ondansetron 4 MG/2 ML SDV IVPUSH ONE ×2 (21:19→23:17)
[2024-05-29] MEDS: Dextrose 5%-0.9% NaCl 1,000 ML IV STA ×2 (21:19→21:56)
[2024-05-29 21:23] LABS: BASOPHILS ABSOLUTE AUTO 0.04 K/uL (0.00-0.20); BASOPHILS PERCENT AUTO 0.6 % (0.0-1.0); EOSINOPHILS ABSOLUTE AUTO 0.06 K/uL (0.00-0.45); EOSINOPHILS PERCENT AUTO 0.8 % (0.0-6.0); HEMATOCRIT 38.4 % (37.0-47.0); HEMOGLOBIN 14.3 g/dL (12.0-16.0); IMMATURE GRAN ABSOLUTE AUTO 0.02 K/uL (0.00-0.05); IMMATURE GRAN PERCENT AUTO 0.3 % (0.0-0.4); LYMPHOCYTES ABSOLUTE AUTO 1.22 K/uL (1.00-4.80); LYMPHOCYTES PERCENT AUTO 16.9 % (24.0-44.0); MEAN CORPUSCULAR HEMOGLOBIN 31.5 pg (28.0-32.0); MEAN CORPUSCULAR HGB CONC 37.2 g/dL (32.0-36.0); MEAN CORPUSCULAR VOLUME 84.6 fL (83.0-99.0); MEAN PLATELET VOLUME 10.3 fL (9.4-12.3); MONOCYTES ABSOLUTE AUTO 0.49 K/uL (0.00-0.80); MONOCYTES PERCENT AUTO 6.8 % (0.0-8.0); NEUTROPHILS ABSOLUTE AUTO 5.41 K/uL (1.80-7.70); NEUTROPHILS PERCENT AUTO 74.6 % (41.0-71.0); PLATELET COUNT,PLT 201 K/uL (150-400); RED BLOOD CELL COUNT 4.54 M/uL (4.10-5.30); WHITE BLOOD CELL COUNT,WBC 7.24 K/uL (3.9-11.3)
[2024-05-29 21:24] LABS: BILIRUBIN,URINE NEGATIVE (NEGATIVE); GLUCOSE,URINE NEGATIVE (NEGATIVE); KETONES,URINE 15 mg/dL (NEGATIVE); LEUKOCYTE ESTERASE,URINE NEGATIVE (NEGATIVE); NITRITE,URINE POSITIVE (NEGATIVE); OCCULT BLOOD,URINE NEGATIVE (NEGATIVE); PROTEIN,URINE NEGATIVE (NEGATIVE); UROBILINOGEN,URINE 0.2 EU/dL (<2.0)
[2024-05-29 21:29] LABS: APPEARANCE,URINE SLT CLOUDY; COLOR,URINE DARK YELLOW
[2024-05-29 21:33] LABS: BACTERIA,URINE 1+ (NEGATIVE); EPITHELIAL CELLS,URINE FEW (NONE-FEW); MUCUS,URINE MANY (NONE-MOD); RBC,URINE 0-3 (0-2/HPF)
[2024-05-29] MEDS: Thiamine 200 MG/2 ML MDV IVPUSH ONE (21:51)
[2024-05-29 21:54] LABS: A/G RATIO 1.3 (0.9-1.6); ALANINE AMINOTRANSFERASE,ALT 15 IU/L (14-63); ALBUMIN 4.5 g/dL (3.4-5.0); ALKALINE PHOSPHATASE 54 U/L (46-116); ASPARTATE AMNIOTRANSFERASE,AST 11 IU/L (15-37); BLOOD UREA NITROGEN,BUN 14 mg/dL (7.0-18.0); CALCIUM 9.5 mg/dL (8.5-10.1); CARBON DIOXIDE,CO2 26.6 mmol/L (21.0-32.0); CHLORIDE,CL 100 mmol/L (98-107); CREATININE 0.7 mg/dL (0.6-1.0); EST CRCL DRUG DOSING (CG) 97.43 mL/min; GLUCOSE RANDOM 98 mg/dL (74-106); POTASSIUM,K 3.4 mmol/L (3.5-5.1); PROTEIN TOTAL,TP 7.9 g/dL (6.4-8.2); SODIUM,NA 137 mmol/L (136-145)
[2024-05-29 21:56] LABS: ESTIMATED GFR 119 mL/min (>60); TSH ULTRASENSITIVE < 0.01 uIU/mL (0.36-3.74)
[2024-05-29 22:11] LABS: T4 FREE 2.28 ng/dL (0.76-1.46)
[2024-05-29] MEDS: cefTRIAXone 1 GM in Sodium Chloride 0.9% 50 ML IV ONE (22:38)
[2024-05-29 22:44] VITALS: PULSE 92
[2024-05-29 23:26] VITALS: BP 110/62
== END 2024-05-29 23:25 | disposition home or self-care (01) ==
LOC: MW.ED 20:34
DX: O21.0 Mild hyperemesis gravidarum (principal); O23.41 Unspecified infection of urinary tract in pregnancy, first trimester; O99.611 Diseases of the digestive system complicating pregnancy, first trimester; K21.9 Gastro-esophageal reflux disease without esophagitis; Z79.899 Other long term (current) drug therapy; Z75.8 Other problems related to medical facilities and other health care; Z3A.10 10 weeks gestation of pregnancy
CPT/HCPCS: 36415; 80053; 81001; 83735; 84439; 84443; 84702; 85025; 87086; 96361; 96365; 96375; 96376; 99284; J0696; J2405; J3411; J3490; J7042

== ENCOUNTER 2025-02-24 20:33 | Emergency (ER) | payer BC ==
[2025-02-24 21:47] VITALS: BP 128/74; PULSE 109
== END 2025-02-24 21:24 | disposition home or self-care (01) ==
LOC: MW.ED 20:33
DX: N61.0 Mastitis without abscess (principal); K21.9 Gastro-esophageal reflux disease without esophagitis; Z79.899 Other long term (current) drug therapy; Z90.49 Acquired absence of other specified parts of digestive tract
CPT/HCPCS: 99282; 99283